=== PATIENT | male | born 1955 | race Caucasian/White ===

== ENCOUNTER 2017-09-14 16:40 | Inpatient (IN) | payer MEDICARE, MEDICAID ==
[2017-09-14] MEDS ORDERED: Aspirin Low Dose CHEW TAB* 81 MG PO ONE (17:13)
[2017-09-14 17:29] LABS: ABS Basophils 0.2 10^3/ul (0-0.2); ABS Eosinophils 0.3 10^3/ul (0-0.6); ABS Lymphocytes 3.1 10^3/ul (1.0-4.8); ABS Monocytes 0.8 10^3/ul (0-0.8); ABS Neutrophils 6.5 10^3/ul (1.5-7.7); ABS Nucleated RBC 0 10^3/ul; Eosinophil % 2.8 % (0-6); Hematocrit 47 % (42-52); Hemoglobin 16.3 g/dl (14.0-18.0); Lymphocyte % 28.8 % (25-47); Mean Corpuscular HGB Conc 34 g/dl (31-36); Mean Corpuscular Hemoglobin 29 pg (27-31); Mean Corpuscular Volume 84 fL (80-94); Mean Platelet Volume 7 um3 (7.4-10.4); Nucleated Red Blood Cells % 0; Platelet Count 306 10^3/ul (150-450); Red Blood Count 5.65 10^6/ul (4.0-5.4); Red Cell Distribution Width 13 % (10.5-15); White Blood Count 10.9 10^3/ul (3.5-10.8)
--- NOTE | 2017-09-14 17:36 | RAD ---
Indication: LEFT chest pain and heaviness with radiation to the LEFT neck and upper LEFT arm. Dizziness and intermittent shortness of breath. History of COPD. Comparison: August 09, 2015 Technique: Upright AP 1720 hours Report: Elevated lung volumes. No focal pulmonary lesion, compelling alveolar consolidation, pleural effusion, pneumothorax. The heart, pulmonary vasculature, and mediastinal contours are unremarkable. IMPRESSION: 1. Elevated lung volumes corresponding with history of COPD. 2. No acute cardiopulmonary process evident.
[2017-09-14 17:42] LABS: INR 0.88 (0.77-1.02)
[2017-09-14 17:47] LABS: EGFR Non-African American 91.9 (>60)
[2017-09-14] MEDS ORDERED: Dextrose 50% Syringe 50 ML* 25 GM/50 ML SYRINGE IV PUSH PRN (18:35)
[2017-09-14] MEDS ORDERED: Morphine INJ* 2 MG/ML 1 ML CARPUJECT IV PRN (18:47)
[2017-09-14] MEDS ORDERED: Albuterol/Ipratropium NEB.SOL* Albuterol 2.5 MG/Ipratropium 0.5 MG 3 ML INH PRN (18:51)
[2017-09-14] MEDS ORDERED: hydrALAZINE IV* 20 MG/ML VIAL IV SLOW PU PRN (18:52)
[2017-09-14] MEDS ORDERED: Iodixanol* (CONTRAST) 320 MG/ML 100 ML SDV IV ONE (18:58)
[2017-09-14] MEDS ORDERED: Acetaminophen TAB* 325 MG PO PRN (19:11)
[2017-09-14] MEDS ORDERED: Polyethylene Glycol 3350* 17 GM PACKET PO PRN (19:12)
[2017-09-14] MEDS ORDERED: Ondansetron INJ* 2 MG/ML VIAL IV PRN (19:16)
--- NOTE | 2017-09-14 19:39 | RAD ---
INDICATION: Chest pain radiating to the neck and LEFT arm. Shortness of breath. Tachycardia. COMPARISON: Chest radiograph of the same date. TECHNIQUE: Multidetector CT images were obtained from the lung apices to the upper abdomen with 79 mL Visipaque 320 IV contrast. Pulmonary angiogram protocol. Multiplanar reformation including with maximum intensity projection. REPORT: Minimal linear subsegmental atelectasis at the anteromedial basal segment of the LEFT lower lobe. No alveolar consolidation concerning for pneumonia or suspicious focal pulmonary lesion. Mucus plugging at the LEFT lower lobe lobar through segmental airways. Negative for pleural effusion or pneumothorax. Negative for cardiomegaly. Small pericardial effusion. Normal diameter thoracic aorta. Negative for aortic dissection. No filling defects are identified from the main to the subsegmental pulmonary arteries to indicate presence of a pulmonary embolism. Images through the upper abdomen are remarkable for a 1.4 cm subcapsular cyst at the RIGHT posterior hepatic segment and mild prominence of the limbs of the bilateral adrenal glands most consistent with hyperplasia. Negative for suspicious thoracic osseous lesions. IMPRESSION: 1. No evidence for pulmonary embolism. 2. Mucus plugging at the LEFT lower lobe with minimal associated subsegmental atelectasis 3. Small pericardial effusion.
[2017-09-14] MEDS: Mometasone/Formoter 200/5 MDI INH SCH (20:04)
[2017-09-14] MEDS: Insulin LISPRO* 1 UNITS UNIT SUBCUT SCH (20:41)
[2017-09-14] MEDS: Gabapentin CAP(*) 300 MG PO SCH (20:42)
[2017-09-14] MEDS: guaiFENesin ER TAB 600 MG PO SCH (21:19)
[2017-09-14] MEDS: Nicotine PATCH 14 MG/24 HR* PATCH TRANSDERM SCH (21:20)
[2017-09-14] MEDS: levETIRAcetam TAB* 500 MG PO SCH (21:22)
[2017-09-14] MEDS: Atorvastatin* 10 MG TAB PO SCH (21:23)
--- NOTE | 2017-09-14 22:56 | HP ---
AMENDED REPORT NOW INCLUDES COSIGNER DESIGNATION - ESIGNED BEFORE ADJUSTMENT CC: Guero Rutherford * HISTORY AND PHYSICAL: DATE OF ADMISSION: 09/14/17 ATTENDING FOR THIS ADMISSION: Paco Copeland MD * (DICTATED BY NOLBERTO JAQUEZ NP) PRIMARY CARE PROVIDER: Guero Rutherford. CHIEF COMPLAINT: Chest pain and shortness of breath. HISTORY OF PRESENT ILLNESS: This is a very pleasant 62-year-old male patient who reported laying on his cough earlier today taking nap and then suddenly was woken by feeling of chest heaviness and pressure. The patient subsequently sat up, took a few deep breaths and tried to wait for the pain to subside. As he was waiting, a few minutes later, the pain then became sharp, midsternal in nature and then radiating up into the left shoulder. The patient states he had some accompanying nausea with the feeling, but did not break the sweat and then felt palpitations after that. The patient subsequently called 911 and then came to the emergency department for evaluation. PAST MEDICAL HISTORY: Significant for psychiatric hospitalization 2 years ago, diagnoses: Delusions and schizophrenia with paranoia. Also, the patient self- reports history of coronary artery disease, diabetic neuropathy, diabetes mellitus, likely COPD, hypertension. At some point, he reported he was told there was a mass in one of his lungs. MEDICATIONS AT HOME: The patient states he was prescribed a diabetic medication , which he is not taking. He cannot remember which one it is; however, he does also take: 1. Gabapentin 300 mg 3 times a day. 2. Albuterol inhaler 2 puffs every 4 hours as needed. 3. Advair Diskus 250/50 one puff 2 times a day. 4. Abilify IM, monthly ALLERGIES: No known drug allergies. FAMILY HISTORY: Father with coronary artery disease and secondary to MN at age 58. Mother with diabetes mellitus, also . SOCIAL HISTORY: The patient does smoke. Currently he smokes 7 cigarettes a day ; however, he used to smoke a lot more and started at age approximately 15. Denies alcohol or drug use. The patient states he is retired. 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 REVIEW OF SYSTEMS: The patient reports currently chest pain at 2/10. Denies any fever, fatigue, or chills. Currently, no palpitations, no nausea, no vomiting. No urinary complaints. No shortness of breath at present. No myalgias or arthralgias and no further constitutional complaints. PHYSICAL EXAMINATION GENERAL: The patient is awake and alert, well nourished, well appearing. VITAL SIGNS: Currently, blood pressure 126/97, heart rate variable between 107 and 110, respiratory rate 20, O2 saturation 97% on room air, temperature is 98.1. HEENT: The patient is atraumatic, normocephalic. PERRLA with nonicteric sclera. NECK: Supple. Nontender. No JVD noted. No carotid bruit auscultated. No thyromegaly noted. LUNGS: Greatly diminished throughout the lung chamberlain. He has bilateral inspiratory and expiratory wheeze. No rales appreciated. No rhonchi noted. CARDIOVASCULAR: S1, S2 were present. No murmurs, gallops or rubs noted. He is in regular sinus rhythm on telemetry. ABDOMEN: Soft. Nontender. Nondistended. Positive bowel sounds in all 4 quadrants. GENITOURINARY: Deferred. MUSCULOSKELETAL: There is no clubbing and no cyanosis. He has trace edema to the right lower extremity primarily on the anterior das and the dorsal aspect of the right foot. He has +2 distal pulses palpable. Gross motor and sensation are intact. He is ambulatory. NEUROLOGIC: He is grossly intact with no focal deficits. PSYCHIATRIC: He is cooperative and appropriate. LABORATORY DATA: WBC 10.9, RBC 5.65, hemoglobin 16.3, hematocrit 47, platelets are 306. Sodium 132, potassium 4.3, chloride 99, BUN 13, creatinine 0.85, GFR is 91.9, glucose 334, lactic acid 1.9, calcium 9.4, magnesium 2.0, bilirubin 0.7, AST 10, ALT 9, alk phos 62, creatine kinase 66. CK-MB is 3.5. Troponin, first troponin is negative at 0.00, BNP is 14, protein 6.9, albumin of 4.1, globulin 2.8, TSH is 1.48. INR is 0.88. IMAGING: Chest x-ray did today show some hyperinflation, but no acute consolidation. EKG showed sinus tachycardia with no acute ST segment changes. IMPRESSION: This is a 62-year-old male patient with a history significant for diabetes mellitus and self-reported history of coronary artery disease and hypertension who is coming to the ER for evaluation of chest pressure and pain. The patient has been admitted to Dr. Copeland's service. DIAGNOSES: 1. Chest pain, rule out acute coronary syndrome. 2. Diabetes mellitus, uncontrolled. 3. Chronic obstructive pulmonary disease. 4. History of schizophrenia and psychosis, not in acute exacerbation. PLAN: The patient has been admitted. For now, being that patient was describing history of cardiac catheterization at [facility], he said some time between 4 and 6 years ago, he was told at that time he had 2-vessel disease, but he did not have PCI intervention. As such, we will put in patient for stress test for tomorrow, also given the palpitations that he had with this, we will send him for cardiac echo to evaluate his valves and ensure that there are no other acute findings. He will remain on telemetry. He did receive nitroglycerin by EMS on the way into the emergency department; however, it dropped his blood pressure pretty significantly. It went to 90 systolic and was symptomatic. We will try morphine 2 mg for now for his chest pain as needed and try to stay away from nitrates for now. He also received aspirin [address] Also with his chest pain, he had some shortness of breath. The D- dimer was done; however, the patient also reported after the chest pressure a sharp almost tearing sensation that went to the left shoulder. We will do a CT angiogram of the chest just to ensure no other acute pathology. Also, the patient had self-reported that he was told at one point he had a mass in his chest, I do not see anything on this chest x-ray; however, we will see if we can elucidate this further with a CAT scan of his chest. For his diabetes mellitus, I have ordered a hemoglobin A1c and placed him on lispro sliding scale ACHS. Consistent carbohydrate diet with no caffeine. For his hypertension, we will give him Apresoline q.6 hours as needed. Even though he is a little tachycardiac now, I would avoid beta-blockers at this point until he has his stress test tomorrow. If his heart rate continues to be elevated, we may give 1 dose Lopressor if needed, but would avoid that the morning of his stress test. For his psychosis and schizophrenia, the patient goes to [facility] monthly for an Abilify injection. He received that injection yesterday. His mood is very appropriate. He describes no anxiety or no issues today. He is feeling pretty good, so I do not think he will need p.r.n. medications at this point. For his COPD, he was counseled on smoking cessation. I have put him on Dulera, also keep him on his albuterol every 4 hours, DuoNeb every 6 hours. He does not appear to be in acute exacerbation. I do not feel at this point, he needs antibiotics and does not appear to have any consolidation on his chest x-ray. His sodium is mildly low and he has a bit of leukocytosis. I suspect leukocytosis is reactive from his Abilify injection yesterday. He will be n.p.o. after midnight in anticipation of his stress test. If for any reason there are positive findings on any of the exams that we are doing, we will reevaluate for inpatient status and consider Cardiology consult. In the meantime, we will carefully monitor the patient and also recheck his laboratories in the morning to ensure there are no additional changes. For DVT prophylaxis, he is ambulatory. I think we would be okay with SCDs for now as opposed to going to heparin or Lovenox injection. If this needs to change tomorrow, that can be adjusted. He is a Full Code. The rest of the patient's course will be determined by further diagnostics, laboratories and any other input from other providers as warranted during this admission. Incidentally, the patient does not have a healthcare proxy that I am aware of. This should be discussed further with him in case there are any serious findings during his stay. NOLBERTO JAQUEZ, GUILLERMO [id number]/CPS #: [id number] RAMAKRISHNA
--- NOTE | 2017-09-15 04:16 | ED ---
Annamarie Johnson Jason, scribed for Afshan Delgado MD on 09/14/17 at 1919 . HPI Chest Pain - HPI Summary HPI Summary: This patient is a 62 year old M [facility]IB[facility] to [facility] with a chief complaint of chest pain since 1529 today. The patient reports he was lying on the couch when he experienced left chest pain and heaviness with radiation to the left neck and upper left armm, with dizziness and shortness of breath. Pt states he had a cardiac catheterization done in [facility], and was found to have two vessel "small disease" that was treated medically, 4 years ago. Enroute by EMS the patient was administered 1 dose of nitroglycerin, which dropped his blood pressure to 90/40. He was also given ASA 324mg by EMS. He has been previously seen at [facility] for acute psychosis, and he is subsequently maintained on abilify IM monthly, which he states he is compliant, and last dose was a week ago. The patient rates the chest pain 5/10 in severity. Symptoms aggravated by nothing. Chest pain was partially relieved by nitroglycerin. Pt reports that he is diabetic, and was prescribed medication, but he does not take it, because he does not believe in it. Pt states he was also told he had a mass in his lung but he does not want treatment for this. Cardiac risk fxs: self report CAD per cath done in [place], no records of this at [facility]; +smoker, HTN, hyperlipidemia, DM, fam hx. - History of Current Complaint Chief Complaint: EDChestPainROMI Time Seen by Provider: 09/14/17 16:50 Hx Obtained From: Patient Onset/Duration: Started Hours Ago - since 1529, Still Present Time of Onset: 15:30 Timing: Constant Initial Severity: Severe Current Severity: Moderate Pain Intensity: 5 Pain Scale Used: 0-10 Numeric Chest Pain Location: Mid Sternal Chest Pain Radiates: Yes Chest Pain Radiates To:: Arm, Neck Character: Dyspnea at Rest, Heaviness, Pressure/Squeezing, Tightness Aggravating Factor(s): Nothing Alleviating Factor(s): Medication - Nitroglycerin x 1 by EMS Associated Signs and Symptoms: Positive: Chest Pain, Dizziness, Shortness of Breath, Other: - SOB and CP radiating to left neck and left arm. - Additional Pertinent History Primary Care Physician: Dr. Salamanca - Allergy/Home Medications Allergies/Adverse Reactions: Allergies Allergy/AdvReac Type Severity Reaction Status Date / Time No Known Allergies Allergy Verified 03/10/15 10:44 Home Medications: Home Medications Albuterol HFA INHALER* [Ventolin HFA Inhaler*] 2 puff INH Q4H PRN 09/14/17 [ History Confirmed 09/14/17] Fluticasone-Salmeterol 250-50* [Advair Diskus 250-50*] 1 puff INH BID 09/14/17 [ History Confirmed 09/14/17] Gabapentin CAP(*) [Neurontin 300 CAP(*)] 300 mg PO TID 09/14/17 [History Confirmed 09/14/17] Simvastatin 20 mg PO DAILY 09/14/17 [History Confirmed 09/14/17] levETIRAcetam [Levetiracetam] 500 mg PO BID 09/14/17 [History Confirmed 09/14/17 ] PMH/Surg Hx/FS Hx/Imm Hx Previously Healthy: No Endocrine/Hematology History: Reports: Hx Diabetes Cardiovascular History: Reports: Hx Coronary Artery Disease, Hx Hypercholesterolemia, Hx Hypertension Respiratory History: Reports: Hx Asthma, Hx Chronic Obstructive Pulmonary Disease (COPD), Hx Lung Cancer - per patient, stated he did not want treatment Psychiatric History: Reports: Hx Community Mental Health Tx, Hx Schizophrenia Denies: Hx Eating Disorder, Hx of Violent Episodes Against Others - Cancer History Cancer Type, Location and Year: Pt states he has lung cancer but is not seeking treatment for it. No [facility] records confirm diagnosis of lung cancer - Immunization History Immunizations Up to Date: Yes Infectious Disease History: No Infectious Disease History: Denies: Traveled Outside the [place] in Last 30 Days - Family History Known Family History: Positive: Cardiac Disease - in father, Diabetes - in mother - Social History Alcohol Use: Occasionally Substance Use Type: Reports: None Smoking Status (MU): Current Every Day Smoker Type: Cigarettes Review of Systems Constitutional: Negative Positive: Chest Pain - with radiation to left neck and left arm Positive: Shortness Of Breath - intermittent Gastrointestinal: Negative Neurological: Negative Psychological: Normal All Other Systems Reviewed And Are Negative: Yes Physical Exam - Summary Physical Exam Summary: Appearance: Ill-appearing, moderate pain distress, Well-nourished Skin: Warm, color reflects adequate perfusion Head: Normal Head/Face inspection Eyes: Conjunctiva clear ENT: Normal inspection Neck: Supple, no nodes, no JVD. Respiratory: Expiratory Wheezes throughout, no respiratory distress Cardio: RRR, No murmur, pulses normal, brisk capillary refill Abdomen: soft, nontender Bowel sounds: present Musculoskeletal: Strength Intact/ ROM intact. No calf tenderness. No edema. Neuro: alert O x 3, No focal deficit. facial symmetry, speech clear Psychological: Normal Triage Information Reviewed: Yes Vital Signs On Initial Exam: Initial Vitals Pulse Resp Pulse Ox 110 17 96 09/14/17 16:47 09/14/17 16:47 09/14/17 16:47 Vital Signs Reviewed: Yes Diagnostics - Vital Signs Vital Signs Temp Pulse Resp BP Pulse Ox 09/14/17 18:30 108 20 159/104 97 09/14/17 18:00 108 20 126/97 97 09/14/17 17:30 110 25 141/95 97 09/14/17 17:04 136/91 09/14/17 17:00 98.1 F 109 14 136/91 96 09/14/17 16:47 110 17 96 - Laboratory Lab Results: Lab Results 09/14/17 09/14/17 09/14/17 Range/Units 17:20 17:20 17:20 WBC 10.9 H (3.5-10.8) 10^3/ul RBC 5.65 H (4.0-5.4) 10^6/ul Hgb 16.3 (14.0-18.0) g/dl Hct 47 (42-52) % MCV 84 (80-94) fL MCH 29 (27-31) pg MCHC 34 (31-36) g/dl RDW 13 (10.5-15) % Plt Count 306 (150-450) 10^3/ul MPV 7 L (7.4-10.4) um3 Neut % (Auto) 59.7 (38-83) % Lymph % (Auto) 28.8 (25-47) % Phillips % (Auto) 7.2 H (0-7) % Eos % (Auto) 2.8 (0-6) % Baso % (Auto) 1.5 (0-2) % Absolute Neuts (auto) 6.5 (1.5-7.7) 10^3/ul Absolute Lymphs (auto) 3.1 (1.0-4.8) 10^3/ul Absolute Monos (auto) 0.8 (0-0.8) 10^3/ul Absolute Eos (auto) 0.3 (0-0.6) 10^3/ul Absolute Basos (auto) 0.2 (0-0.2) 10^3/ul Absolute Nucleated RBC 0 10^3/ul Nucleated RBC % 0 INR (Anticoag Therapy) 0.88 (0.77-1.02) APTT 28.5 (26.0-36.3) seconds D-Dimer, Quantitative < 200 (Less Than 230) ng/mL Sodium (133-145) mmol/L Potassium (3.5-5.0) mmol/L Chloride (101-111) mmol/L Carbon Dioxide (22-32) mmol/L Anion Gap (2-11) mmol/L BUN (6-24) mg/dL Creatinine (0.67-1.17) mg/dL Est GFR ( Amer) (>60) Est GFR (Non-Af Amer) (>60) BUN/Creatinine Ratio (8-20) Glucose (70-100) mg/dL Lactic Acid (0.5-2.0) mmol/L Calcium (8.6-10.3) mg/dL Magnesium (1.9-2.7) mg/dL Total Bilirubin (0.2-1.0) mg/dL AST (13-39) U/L ALT (7-52) U/L Alkaline Phosphatase (34-104) U/L Total Creatine Kinase (10-223) U/L CK-MB (CK-2) (0.6-6.3) ng/mL Troponin I (<0.04) ng/mL B-Natriuretic Peptide 14 ( - 100) pg/mL Total Protein (6.4-8.9) g/dL Albumin (3.2-5.2) g/dL Globulin (2-4) g/dL Albumin/Globulin Ratio (1-3) TSH (0.34-5.60) mcIU/mL 09/14/17 09/14/17 Range/Units 17:20 17:20 WBC (3.5-10.8) 10^3/ul RBC (4.0-5.4) 10^6/ul Hgb (14.0-18.0) g/dl Hct (42-52) % MCV (80-94) fL MCH (27-31) pg MCHC (31-36) g/dl RDW (10.5-15) % Plt Count (150-450) 10^3/ul MPV (7.4-10.4) um3 Neut % (Auto) (38-83) % Lymph % (Auto) (25-47) % Phillips % (Auto) (0-7) % Eos % (Auto) (0-6) % Baso % (Auto) (0-2) % Absolute Neuts (auto) (1.5-7.7) 10^3/ul Absolute Lymphs (auto) (1.0-4.8) 10^3/ul Absolute Monos (auto) (0-0.8) 10^3/ul Absolute Eos (auto) (0-0.6) 10^3/ul Absolute Basos (auto) (0-0.2) 10^3/ul Absolute Nucleated RBC 10^3/ul Nucleated RBC % INR (Anticoag Therapy) (0.77-1.02) APTT (26.0-36.3) seconds D-Dimer, Quantitative (Less Than 230) ng/mL Sodium 132 L (133-145) mmol/L Potassium 4.3 (3.5-5.0) mmol/L Chloride 99 L (101-111) mmol/L Carbon Dioxide 25 (22-32) mmol/L Anion Gap 8 (2-11) mmol/L BUN 13 (6-24) mg/dL Creatinine 0.85 (0.67-1.17) mg/dL Est GFR ( Amer) 118.2 (>60) Est GFR (Non-Af Amer) 91.9 (>60) BUN/Creatinine Ratio 15.3 (8-20) Glucose 334 H (70-100) mg/dL Lactic Acid 1.9 (0.5-2.0) mmol/L Calcium 9.4 (8.6-10.3) mg/dL Magnesium 2.0 (1.9-2.7) mg/dL Total Bilirubin 0.70 (0.2-1.0) mg/dL AST 10 L (13-39) U/L ALT 9 (7-52) U/L Alkaline Phosphatase 62 (34-104) U/L Total Creatine Kinase 66 (10-223) U/L CK-MB (CK-2) 3.5 (0.6-6.3) ng/mL Troponin I 0.00 (<0.04) ng/mL B-Natriuretic Peptide ( - 100) pg/mL Total Protein 6.9 (6.4-8.9) g/dL Albumin 4.1 (3.2-5.2) g/dL Globulin 2.8 (2-4) g/dL Albumin/Globulin Ratio 1.5 (1-3) TSH 1.48 (0.34-5.60) mcIU/mL Result Diagrams: 09/15/17 13:31 09/15/17 13:31 Lab Statement: Any lab studies that have been ordered have been reviewed, and results considered in the medical decision making process. - Radiology CXR Radiology Interpretation Completed By: Radiologist - CXR reveals, per radiologist, 1. Elevated lung volumes corresponding with history of COPD. 2. No acute cardiopulmonary process evident. ED physician has reviewed this radiology report. - CT Chest/Thorax CT Interpretation Completed By: Radiologist - A Chest/Thorax CTA reveals, per radiologist, 1. No evidence for pulmonary embolism. 2. Mucus plugging at the LEFT lower lobe with minimal associated subsegmental atelectasis 3. Small pericardial effusion. ED physician has reviewed this radiology report. ED physician has reviewed this radiology report. - EKG 1643 Cardiac Rate: Tachycardia EKG Rhythm: Sinus Tachycardia - [address] Segment: Non-Specific Ectopy: None EKG Interpretation: nml AVIVCT, nml QTc, and nml axis. Re-Evaluation - Re-Evaluation First Eval Re-Evaluation Time: 18:03 Change: Improved Comment: Pt condition is improved, pain is now at a 3/10, spontaneously improved. Chest Pain Course/Dx - Course Course Of Treatment: Aspirin was given by EMS, so not given in ED. At 17:[address]. Copeland who recommended admission. Additionally, Dr. Copeland noticed the patient has no record of cardiac catheterization at [facility]. Pt stated upon further questioning that this was done in [facility]. Assessment/Plan: Discussed results with patient. Patient will be admitted. Patient is agreeable with this plan. - Chest Pain Differential Diagnosis/HQI/PQRI: Acute OK, ACS, Angina, Chest Wall, GI Disease, Lower Respiratory Infection, Pulmonary Embolism - Diagnoses Provider Diagnoses: Chest pain, Poorly controlled diabetes mellitus - Provider Notifications Discussed Care Of Patient With: Celestino Copeland Time Discussed With Above Provider: 17:54 - admit Instructed by Provider To: Admit As Observation Discharge - Discharge Plan Condition: Stable Disposition: ADMITTED TO [facility] documentation as recorded by the Annamarie longoria Jason accurately reflects the service I personally performed and the decisions made by Danny tamayo Barbara J, MD.
[2017-09-15 06:07] LABS: ABS Basophils 0.1 10^3/ul (0-0.2); ABS Eosinophils 0.4 10^3/ul (0-0.6); ABS Monocytes 0.7 10^3/ul (0-0.8); ABS Neutrophils 4.8 10^3/ul (1.5-7.7); ABS Nucleated RBC 0 10^3/ul; Eosinophil % 4.2 % (0-6); Hematocrit 47 % (42-52); Hemoglobin 15.6 g/dl (14.0-18.0); Lymphocyte % 33.7 % (25-47); Mean Corpuscular HGB Conc 34 g/dl (31-36); Mean Corpuscular Hemoglobin 28 pg (27-31); Mean Corpuscular Volume 84 fL (80-94); Mean Platelet Volume 7 um3 (7.4-10.4); Nucleated Red Blood Cells % 0.1; Platelet Count 258 10^3/ul (150-450); Red Blood Count 5.54 10^6/ul (4.0-5.4); Red Cell Distribution Width 13 % (10.5-15)
[2017-09-15 06:23] LABS: EGFR Non-African American 94.5 (>60)
[2017-09-15 07:00] LABS: Urine Appearance Clear; Urine Blood Negative (Negative); Urine Color Yellow; Urine Ketones Negative (Negative); Urine Protein Negative (Negative); Urine Specific Gravity 1.047 (1.010-1.030); Urine Urobilinogen Negative (Negative)
[2017-09-15] MEDS: Mometasone/Formoter 200/5 MDI INH SCH ×2 (07:24→19:58)
[2017-09-15] MEDS: Nicotine PATCH 14 MG/24 HR* PATCH TRANSDERM SCH (08:34)
[2017-09-15] MEDS: Insulin LISPRO* 1 UNITS UNIT SUBCUT SCH ×4 (08:34→21:46)
[2017-09-15] MEDS: guaiFENesin ER TAB 600 MG PO SCH ×2 (08:35→21:40)
[2017-09-15] MEDS: levETIRAcetam TAB* 500 MG PO SCH ×2 (08:35→21:40)
[2017-09-15] MEDS: Nicotine Patch Removal NOTE PATCH OFF SCH (08:35)
[2017-09-15] MEDS: Gabapentin CAP(*) 300 MG PO SCH ×3 (08:35→21:39)
[2017-09-15] MEDS: Insulin GLARGINE(*) 1 UNITS UNIT SUBCUT SCH (12:02)
[2017-09-15] MEDS: Metoprolol Tartrate TAB* 25 MG PO SCH ×2 (12:03→21:43)
--- NOTE | 2017-09-15 12:16 | PN ---
Subjective Date of Service: 09/15/17 Interval History: Pt is a rather poor historian, Las CP similar to the one yesterday happened 4 yrs ago and at that point stress test was neg. Denies having CAD or cath in the past. Had been CP free since admission Smokes 7 cig/day, denies ETOH. No SOB but c/o wheezing Objective Active Medications: Acetaminophen (Tylenol Tab*) 650 mg PO Q6H PRN PRN Reason: FEVER/HEADACHE Last Admin: 09/15/17 05:10 Dose: 650 mg Albuterol (Ventolin Hfa Inhaler*) 2 puff INH Q4H PRN PRN Reason: SOB/WHEEZING Albuterol/Ipratropium (Duoneb (Albuterol 2.5 Mg/Ipratropium 0.5 Mg)) 1 neb INH Q6H PRN PRN Reason: SOB/WHEEZING Atorvastatin Calcium (Lipitor*) 10 mg PO BEDTIME [facility] Last Admin: 09/14/17 21:23 Dose: Not Given Dextrose (D50w Syringe 50 Ml*) 12.5 gm IV PUSH .FOR FS < 60 - SS PRN PRN Reason: FS < 60 Gabapentin (Neurontin Cap(*)) 300 mg PO TID [facility] Last Admin: 09/15/17 08:35 Dose: 300 mg Guaifenesin (Mucinex*) 600 mg PO BID [facility] Last Admin: 09/15/17 08:35 Dose: 600 mg Insulin Glargine (Lantus(*)) 10 units SUBCUT Q24H [facility] Last Admin: 09/15/17 12:02 Dose: 10 units Insulin Human Lispro (Humalog*) 0 units SUBCUT ACHS [facility] PRN Reason: Protocol Last Admin: 09/15/17 12:03 Dose: 6 units Levetiracetam (Keppra Tab*) 500 mg PO BID [facility] Last Admin: 09/15/17 08:35 Dose: 500 mg Metoprolol Tartrate (Lopressor Tab*) 12.5 mg PO Q12HR [facility] Last Admin: 09/15/17 12:03 Dose: 12.5 mg Mometasone Furoate/Formoterol Fumar (Dulera 200/5 Mdi*) 2 puff INH BID [facility] Last Admin: 09/15/17 07:24 Dose: 2 puff Morphine Sulfate (Morphine Inj (Syringe)*) 2 mg IV Q4H PRN PRN Reason: PAIN - CHEST Nicotine (Nicotine Patch 14 Mg/24 Hr*) 1 patch TRANSDERM DAILY [facility] Last Admin: 09/15/17 08:34 Dose: 1 patch Ondansetron HCl (Zofran Inj*) 4 mg IV Q8H PRN PRN Reason: NAUSEA Pharmacy Profile Note (Nicotine Patch Removal Note*) 1 note PATCH OFF 0800 [facility] Last Admin: 09/15/17 08:35 Dose: 1 note Polyethylene Glycol/Electrolytes (Miralax*) 17 gm PO DAILY PRN PRN Reason: CONSTIPATION Vital Signs - 8 hr 09/15/17 09/15/17 09/15/17 07:10 07:30 08:35 Temperature 98.0 F Pulse Rate 95 Respiratory 20 20 16 Rate Blood Pressure 130/75 (mmHg) O2 Sat by Pulse 94 Oximetry 09/15/17 09/15/17 10:24 11:12 Temperature 98.1 F Pulse Rate 100 Respiratory 18 16 Rate Blood Pressure 128/93 (mmHg) O2 Sat by Pulse 97 Oximetry Oxygen Devices in Use Now: None Appearance: 62 yo F in NAD, AAOx3 Eyes: No Scleral Icterus, PERRLA Ears/Nose/Mouth/Throat: NL Teeth, Lips, Gums Neck: NL Appearance and Movements; NL JVP, Trachea Midline Respiratory: Symmetrical Chest Expansion and Respiratory Effort, - - wheezing b/ l upper lungs clears mostly after cough Cardiovascular: NL Sounds; No Murmurs; No JVD, RRR Abdominal: NL Sounds; No Tenderness; No Distention, No Hepatosplenomegaly Lymphatic: No Cervical Adenopathy Extremities: No Edema, No Clubbing, Cyanosis Skin: No Rash or Ulcers, No Nodules or Sclerosis Neurological: Alert and Oriented x 3, NL Muscle Strength and Tone Result Diagrams: 09/15/17 05:54 09/15/17 05:54 Additional Lab and Data: Lab Results 09/14/17 09/14/17 09/14/17 Range/Units 17:20 17:20 17:20 WBC 10.9 H (3.5-10.8) 10^3/ul RBC 5.65 H (4.0-5.4) 10^6/ul Hgb 16.3 (14.0-18.0) g/dl Hct 47 (42-52) % MCV 84 (80-94) fL MCH 29 (27-31) pg MCHC 34 (31-36) g/dl RDW 13 (10.5-15) % Plt Count 306 (150-450) 10^3/ul MPV 7 L (7.4-10.4) um3 Neut % (Auto) 59.7 (38-83) % Lymph % (Auto) 28.8 (25-47) % [place] % (Auto) 7.2 H (0-7) % Eos % (Auto) 2.8 (0-6) % Baso % (Auto) 1.5 (0-2) % Absolute Neuts (auto) 6.5 (1.5-7.7) 10^3/ul Absolute Lymphs (auto) 3.1 (1.0-4.8) 10^3/ul Absolute Monos (auto) 0.8 (0-0.8) 10^3/ul Absolute Eos (auto) 0.3 (0-0.6) 10^3/ul Absolute Basos (auto) 0.2 (0-0.2) 10^3/ul Absolute Nucleated RBC 0 10^3/ul Nucleated RBC % 0 INR (Anticoag Therapy) 0.88 (0.77-1.02) APTT 28.5 (26.0-36.3) seconds D-Dimer, Quantitative < 200 (Less Than 230) ng/mL Sodium (133-145) mmol/L Potassium (3.5-5.0) mmol/L Chloride (101-111) mmol/L Carbon Dioxide (22-32) mmol/L Anion Gap (2-11) mmol/L BUN (6-24) mg/dL Creatinine (0.67-1.17) mg/dL Est GFR ( Amer) (>60) Est GFR (Non-Af Amer) (>60) BUN/Creatinine Ratio (8-20) Glucose (70-100) mg/dL Lactic Acid (0.5-2.0) mmol/L Calcium (8.6-10.3) mg/dL Magnesium (1.9-2.7) mg/dL Total Bilirubin (0.2-1.0) mg/dL AST (13-39) U/L ALT (7-52) U/L Alkaline Phosphatase (34-104) U/L Total Creatine Kinase (10-223) U/L CK-MB (CK-2) (0.6-6.3) ng/mL Troponin I (<0.04) ng/mL B-Natriuretic Peptide 14 ( - 100) pg/mL Total Protein (6.4-8.9) g/dL Albumin (3.2-5.2) g/dL Globulin (2-4) g/dL Albumin/Globulin Ratio (1-3) TSH (0.34-5.60) mcIU/mL 09/14/17 09/14/17 Range/Units 17:20 17:20 WBC (3.5-10.8) 10^3/ul RBC (4.0-5.4) 10^6/ul Hgb (14.0-18.0) g/dl Hct (42-52) % MCV (80-94) fL MCH (27-31) pg MCHC (31-36) g/dl RDW (10.5-15) % Plt Count (150-450) 10^3/ul MPV (7.4-10.4) um3 Neut % (Auto) (38-83) % Lymph % (Auto) (25-47) % [place] % (Auto) (0-7) % Eos % (Auto) (0-6) % Baso % (Auto) (0-2) % Absolute Neuts (auto) (1.5-7.7) 10^3/ul Absolute Lymphs (auto) (1.0-4.8) 10^3/ul Absolute Monos (auto) (0-0.8) 10^3/ul Absolute Eos (auto) (0-0.6) 10^3/ul Absolute Basos (auto) (0-0.2) 10^3/ul Absolute Nucleated RBC 10^3/ul Nucleated RBC % INR (Anticoag Therapy) (0.77-1.02) APTT (26.0-36.3) seconds D-Dimer, Quantitative (Less Than 230) ng/mL Sodium 132 L (133-145) mmol/L Potassium 4.3 (3.5-5.0) mmol/L Chloride 99 L (101-111) mmol/L Carbon Dioxide 25 (22-32) mmol/L Anion Gap 8 (2-11) mmol/L BUN 13 (6-24) mg/dL Creatinine 0.85 (0.67-1.17) mg/dL Est GFR ( Amer) 118.2 (>60) Est GFR (Non-Af Amer) 91.9 (>60) BUN/Creatinine Ratio 15.3 (8-20) Glucose 334 H (70-100) mg/dL Lactic Acid 1.9 (0.5-2.0) mmol/L Calcium 9.4 (8.6-10.3) mg/dL Magnesium 2.0 (1.9-2.7) mg/dL Total Bilirubin 0.70 (0.2-1.0) mg/dL AST 10 L (13-39) U/L ALT 9 (7-52) U/L Alkaline Phosphatase 62 (34-104) U/L Total Creatine Kinase 66 (10-223) U/L CK-MB (CK-2) 3.5 (0.6-6.3) ng/mL Troponin I 0.00 (<0.04) ng/mL B-Natriuretic Peptide ( - 100) pg/mL Total Protein 6.9 (6.4-8.9) g/dL Albumin 4.1 (3.2-5.2) g/dL Globulin 2.8 (2-4) g/dL Albumin/Globulin Ratio 1.5 (1-3) TSH 1.48 (0.34-5.60) mcIU/mL Assess/Plan/Problems-Billing Assessment: 62 yo M with h/o HTN, DM2, schizophrenia, COPD presents with c/o CP - Patient Problems (1) Chest pain Comment: pt needs to await a cardiac stress test on Sunday, cont telem tx with ASA, lipitor started at admission trops neg (2) HTN (hypertension) Comment: labile BP with tachycardia, will start lopressor (3) History of COPD Comment: cont Dulera. CTA shows mucous plugging. No evidence of acute infection , encouraged to cough (4) DM2 (diabetes mellitus, type 2) Comment: HbA1C at 11.4 with med noncompliance. Will cont ISS, started Lantus, can be placed on oral agent at d/c (5) Hyperlipemia Comment: LDL 65, cont lipitor (6) Schizophrenia Comment: receives injectable Abilify as outpatient (7) Seizure Comment: vague h/o seizure disorder, cont Keppra for now. (8) DVT prophylaxis Comment: HSQ Status and Disposition: OBV placed to inpatient due to the need of stress test on Sunday
[2017-09-15 13:40] LABS: ABS Basophils 0.1 10^3/ul (0-0.2); ABS Eosinophils 0.4 10^3/ul (0-0.6); ABS Lymphocytes 2.5 10^3/ul (1.0-4.8); ABS Monocytes 0.4 10^3/ul (0-0.8); ABS Neutrophils 5.1 10^3/ul (1.5-7.7); ABS Nucleated RBC 0 10^3/ul; Eosinophil % 4.3 % (0-6); Hematocrit 45 % (42-52); Hemoglobin 15.3 g/dl (14.0-18.0); Lymphocyte % 29.2 % (25-47); Mean Corpuscular HGB Conc 34 g/dl (31-36); Mean Corpuscular Hemoglobin 28 pg (27-31); Mean Corpuscular Volume 83 fL (80-94); Mean Platelet Volume 7 um3 (7.4-10.4); Nucleated Red Blood Cells % 0; Platelet Count 271 10^3/ul (150-450); Red Blood Count 5.42 10^6/ul (4.0-5.4); Red Cell Distribution Width 13 % (10.5-15); White Blood Count 8.4 10^3/ul (3.5-10.8)
[2017-09-15] MEDS: Heparin VIAL(*) 5000 UNITS/ML VIAL (FIVE THOUSAND) SUBCUT SCH ×2 (13:50→21:47)
[2017-09-15 14:09] LABS: INR 0.98 (0.77-1.02)
[2017-09-15 14:11] LABS: EGFR Non-African American 87.2 (>60)
[2017-09-15] MEDS: Albuterol HFA INHALER* 8 gm MDI INH PRN (20:06)
[2017-09-15] MEDS: Atorvastatin* 10 MG TAB PO SCH (21:38)
[2017-09-16] MEDS: Heparin VIAL(*) 5000 UNITS/ML VIAL (FIVE THOUSAND) SUBCUT SCH ×3 (05:23→21:22)
[2017-09-16] MEDS: Mometasone/Formoter 200/5 MDI INH SCH ×2 (07:13→19:34)
[2017-09-16] MEDS: guaiFENesin ER TAB 600 MG PO SCH ×2 (08:14→21:21)
[2017-09-16] MEDS: Insulin LISPRO* 1 UNITS UNIT SUBCUT SCH ×4 (08:14→21:22)
[2017-09-16] MEDS: Metoprolol Tartrate TAB* 25 MG PO SCH ×2 (08:14→21:21)
[2017-09-16] MEDS: Nicotine Patch Removal NOTE PATCH OFF SCH (08:15)
[2017-09-16] MEDS: Gabapentin CAP(*) 300 MG PO SCH ×3 (08:15→21:21)
[2017-09-16] MEDS: Nicotine PATCH 14 MG/24 HR* PATCH TRANSDERM SCH (08:15)
[2017-09-16] MEDS: levETIRAcetam TAB* 500 MG PO SCH ×2 (08:15→21:21)
--- NOTE | 2017-09-16 09:24 | PN ---
Subjective Date of Service: 09/16/17 Interval History: P feels well, no CP noted.Rather poor and reserved historian Objective Active Medications: Acetaminophen (Tylenol Tab*) 650 mg PO Q6H PRN PRN Reason: FEVER/HEADACHE Last Admin: 09/15/17 05:10 Dose: 650 mg Albuterol (Ventolin Hfa Inhaler*) 2 puff INH Q4H PRN PRN Reason: SOB/WHEEZING Last Admin: 09/15/17 20:06 Dose: 2 puff Albuterol/Ipratropium (Duoneb (Albuterol 2.5 Mg/Ipratropium 0.5 Mg)) 1 neb INH Q6H PRN PRN Reason: SOB/WHEEZING Atorvastatin Calcium (Lipitor*) 10 mg PO BEDTIME [facility] Last Admin: 09/15/17 21:38 Dose: 10 mg Dextrose (D50w Syringe 50 Ml*) 12.5 gm IV PUSH .FOR FS < 60 - SS PRN PRN Reason: FS < 60 Gabapentin (Neurontin Cap(*)) 300 mg PO TID [facility] Last Admin: 09/16/17 08:15 Dose: 300 mg Guaifenesin (Mucinex*) 600 mg PO BID [facility] Last Admin: 09/16/17 08:14 Dose: 600 mg Heparin Sodium (Porcine) (Heparin Vial(*)) 5,000 units SUBCUT Q8HR [facility] Last Admin: 09/16/17 05:23 Dose: 5,000 units Insulin Glargine (Lantus(*)) 10 units SUBCUT Q24H [facility] Last Admin: 09/15/17 12:02 Dose: 10 units Insulin Human Lispro (Humalog*) 0 units SUBCUT ACHS [facility] PRN Reason: Protocol Last Admin: 09/16/17 08:14 Dose: 4 units Levetiracetam (Keppra Tab*) 500 mg PO BID [facility] Last Admin: 09/16/17 08:15 Dose: 500 mg Metoprolol Tartrate (Lopressor Tab*) 12.5 mg PO Q12HR [facility] Last Admin: 09/16/17 08:14 Dose: 12.5 mg Mometasone Furoate/Formoterol Fumar (Dulera 200/5 Mdi*) 2 puff INH BID [facility] Last Admin: 09/16/17 07:13 Dose: 2 puff Morphine Sulfate (Morphine Inj (Syringe)*) 2 mg IV Q4H PRN PRN Reason: PAIN - CHEST Nicotine (Nicotine Patch 14 Mg/24 Hr*) 1 patch TRANSDERM DAILY [facility] Last Admin: 09/16/17 08:15 Dose: 1 patch Ondansetron HCl (Zofran Inj*) 4 mg IV Q8H PRN PRN Reason: NAUSEA Pharmacy Profile Note (Nicotine Patch Removal Note*) 1 note PATCH OFF 0800 [facility] Last Admin: 09/16/17 08:15 Dose: 1 note Polyethylene Glycol/Electrolytes (Miralax*) 17 gm PO DAILY PRN PRN Reason: CONSTIPATION Vital Signs - 8 hr 09/16/17 09/16/17 09/16/17 03:03 07:09 08:15 Temperature 98.5 F 98.4 F Pulse Rate 90 85 Respiratory 20 16 18 Rate Blood Pressure 127/93 136/99 (mmHg) O2 Sat by Pulse 95 95 Oximetry Oxygen Devices in Use Now: None Appearance: 62 yo M in nAD, aAOx3 Eyes: No Scleral Icterus, PERRLA Ears/Nose/Mouth/Throat: NL Teeth, Lips, Gums, Mucous Membranes Moist Neck: NL Appearance and Movements; NL JVP, Trachea Midline Respiratory: Symmetrical Chest Expansion and Respiratory Effort, - - scant b/l wheezes noted Cardiovascular: NL Sounds; No Murmurs; No JVD, RRR Abdominal: NL Sounds; No Tenderness; No Distention, No Hepatosplenomegaly Lymphatic: No Cervical Adenopathy Extremities: No Edema, No Clubbing, Cyanosis Skin: No Rash or Ulcers, No Nodules or Sclerosis Neurological: Alert and Oriented x 3, NL Muscle Strength and Tone Result Diagrams: 09/15/17 13:31 09/15/17 13:31 Additional Lab and Data: Lab Results 09/14/17 09/14/17 09/14/17 Range/Units 17:20 17:20 17:20 WBC 10.9 H (3.5-10.8) 10^3/ul RBC 5.65 H (4.0-5.4) 10^6/ul Hgb 16.3 (14.0-18.0) g/dl Hct 47 (42-52) % MCV 84 (80-94) fL MCH 29 (27-31) pg MCHC 34 (31-36) g/dl RDW 13 (10.5-15) % Plt Count 306 (150-450) 10^3/ul MPV 7 L (7.4-10.4) um3 Neut % (Auto) 59.7 (38-83) % Lymph % (Auto) 28.8 (25-47) % [place] % (Auto) 7.2 H (0-7) % Eos % (Auto) 2.8 (0-6) % Baso % (Auto) 1.5 (0-2) % Absolute Neuts (auto) 6.5 (1.5-7.7) 10^3/ul Absolute Lymphs (auto) 3.1 (1.0-4.8) 10^3/ul Absolute Monos (auto) 0.8 (0-0.8) 10^3/ul Absolute Eos (auto) 0.3 (0-0.6) 10^3/ul Absolute Basos (auto) 0.2 (0-0.2) 10^3/ul Absolute Nucleated RBC 0 10^3/ul Nucleated RBC % 0 INR (Anticoag Therapy) 0.88 (0.77-1.02) APTT 28.5 (26.0-36.3) seconds D-Dimer, Quantitative < 200 (Less Than 230) ng/mL Sodium (133-145) mmol/L Potassium (3.5-5.0) mmol/L Chloride (101-111) mmol/L Carbon Dioxide (22-32) mmol/L Anion Gap (2-11) mmol/L BUN (6-24) mg/dL Creatinine (0.67-1.17) mg/dL Est GFR ( Amer) (>60) Est GFR (Non-Af Amer) (>60) BUN/Creatinine Ratio (8-20) Glucose (70-100) mg/dL Lactic Acid (0.5-2.0) mmol/L Calcium (8.6-10.3) mg/dL Magnesium (1.9-2.7) mg/dL Total Bilirubin (0.2-1.0) mg/dL AST (13-39) U/L ALT (7-52) U/L Alkaline Phosphatase (34-104) U/L Total Creatine Kinase (10-223) U/L CK-MB (CK-2) (0.6-6.3) ng/mL Troponin I (<0.04) ng/mL B-Natriuretic Peptide 14 ( - 100) pg/mL Total Protein (6.4-8.9) g/dL Albumin (3.2-5.2) g/dL Globulin (2-4) g/dL Albumin/Globulin Ratio (1-3) TSH (0.34-5.60) mcIU/mL 09/14/17 09/14/17 Range/Units 17:20 17:20 WBC (3.5-10.8) 10^3/ul RBC (4.0-5.4) 10^6/ul Hgb (14.0-18.0) g/dl Hct (42-52) % MCV (80-94) fL MCH (27-31) pg MCHC (31-36) g/dl RDW (10.5-15) % Plt Count (150-450) 10^3/ul MPV (7.4-10.4) um3 Neut % (Auto) (38-83) % Lymph % (Auto) (25-47) % [place] % (Auto) (0-7) % Eos % (Auto) (0-6) % Baso % (Auto) (0-2) % Absolute Neuts (auto) (1.5-7.7) 10^3/ul Absolute Lymphs (auto) (1.0-4.8) 10^3/ul Absolute Monos (auto) (0-0.8) 10^3/ul Absolute Eos (auto) (0-0.6) 10^3/ul Absolute Basos (auto) (0-0.2) 10^3/ul Absolute Nucleated RBC 10^3/ul Nucleated RBC % INR (Anticoag Therapy) (0.77-1.02) APTT (26.0-36.3) seconds D-Dimer, Quantitative (Less Than 230) ng/mL Sodium 132 L (133-145) mmol/L Potassium 4.3 (3.5-5.0) mmol/L Chloride 99 L (101-111) mmol/L Carbon Dioxide 25 (22-32) mmol/L Anion Gap 8 (2-11) mmol/L BUN 13 (6-24) mg/dL Creatinine 0.85 (0.67-1.17) mg/dL Est GFR ( Amer) 118.2 (>60) Est GFR (Non-Af Amer) 91.9 (>60) BUN/Creatinine Ratio 15.3 (8-20) Glucose 334 H (70-100) mg/dL Lactic Acid 1.9 (0.5-2.0) mmol/L Calcium 9.4 (8.6-10.3) mg/dL Magnesium 2.0 (1.9-2.7) mg/dL Total Bilirubin 0.70 (0.2-1.0) mg/dL AST 10 L (13-39) U/L ALT 9 (7-52) U/L Alkaline Phosphatase 62 (34-104) U/L Total Creatine Kinase 66 (10-223) U/L CK-MB (CK-2) 3.5 (0.6-6.3) ng/mL Troponin I 0.00 (<0.04) ng/mL B-Natriuretic Peptide ( - 100) pg/mL Total Protein 6.9 (6.4-8.9) g/dL Albumin 4.1 (3.2-5.2) g/dL Globulin 2.8 (2-4) g/dL Albumin/Globulin Ratio 1.5 (1-3) TSH 1.48 (0.34-5.60) mcIU/mL Assess/Plan/Problems-Billing Assessment: 62 yo M with h/o HTN, DM2, schizophrenia, COPD presents with c/o CP - Patient Problems (1) Chest pain Comment: pt needs to await a cardiac stress test on Sunday, cont telem tx with ASA, lipitor started at admission trops neg (2) HTN (hypertension) Comment: labile BP with tachycardia, lopressor started on 09/15/17, Echo pending (3) History of COPD Comment: cont Dulera. CTA shows mucous plugging. No evidence of acute infection , encouraged to cough (4) DM2 (diabetes mellitus, type 2) Comment: HbA1C at 11.4 with med noncompliance. Will cont ISS, started Lantus on 09/15/17. Will start glipizide today (5) Hyperlipemia Comment: LDL 65, cont lipitor (6) Schizophrenia Comment: receives injectable Abilify as outpatient (7) Seizure Comment: vague h/o seizure disorder, cont Keppra for now. (8) DVT prophylaxis Comment: HSQ Status and Disposition: OBV placed to inpatient due to the need of stress test on Sunday
[2017-09-16] MEDS: glipiZIDE TAB* 5 MG PO SCH (09:49)
--- NOTE | 2017-09-16 10:53 | ECHO ---
Patient: ARTURO MONTANO [facility] Rec#: [id number] : 1955 Date: 09/16/2017 Age: 62y Height: 167.64 cm / 66.0 in Weight: 83.91 kg / 184.9 lbs Sex: M BSA: 1.93 Room#: 443 Admit Date#: 09/15/2017 Type: Inpatient Referring: Sheyla Arguello Reading: Roberto Almeida DO Analysis Intern: Kennedi Kinsey RDCS CC: Valentino Salamanca MD Transthoracic Echocardiogram Indication: CP BP: 127/93 HR: 56 Rhythm: Bradycardia Findings History: Psyche issues,CAD,COPD,DM,HTN,smoker. Technical Comments: The study quality is good. Completed at 0944. Left Ventricle: The left ventricular chamber size is normal. Mild to moderate concentric left ventricular hypertrophy is observed. Global left ventricular wall motion and contractility are within normal limits. Left ventricular systolic function is at the lower limits of normal. The estimated ejection fraction is 50-55%. Abnormal left ventricular diastolic function is observed. Left Atrium: The left atrial chamber size is normal. Right Ventricle: The right ventricular chamber size and systolic function are within normal limits. Right Atrium: The right atrial cavity size is normal. Aortic Valve: The aortic valve is trileaflet. The aortic valve leaflets are mildly thickened. There is a trace of aortic regurgitation. There is no evidence of aortic stenosis. Mitral Valve: The mitral valve leaflets appear normal. There is no evidence of mitral regurgitation. There is no evidence of mitral stenosis. Tricuspid Valve: The tricuspid valve leaflets are normal. There is trace tricuspid regurgitation. Unable to estimate the right ventricular systolic pressure. There is no tricuspid stenosis. Pulmonic Valve: The pulmonic valve appears normal. There is a trace pulmonic regurgitation. There is no pulmonic stenosis. Pericardium: There is no significant pericardial effusion. Aorta: There is no dilatation of the ascending aorta. The aortic arch is not well visualized. There is mild dilatation of the aortic root. Pulmonary Artery: The main pulmonary artery is not well visualized. Venous: The venous system is not well visualized. Conclusions The left ventricular chamber size is normal. Mild to moderate (more consistent with mild) concentric left ventricular hypertrophy is observed. Left ventricular systolic function is at the lower limits of normal. The estimated ejection fraction is 50-55%. The left atrial chamber size is normal. The right ventricular chamber size and systolic function are within normal limits. No significant valvular abnormalities noted There is no significant pericardial effusion. There is mild dilatation of the aortic root. None prior for comparison at time of interpretation Measurements Name Value Normal Range RVIDd (AP) 2D 2.7 cm (0.9 - 2.6) RVDdMajor (2D) 3.1 cm (2.2 - 4.4) RAd ISD 4CH 4.5 cm (3.4 - 4.9) RA (A4C)W 3.7 cm (2.9 - 4.6) IVSd (2D) 1.3 cm (0.6 - 1) LVPWd (2D) 1.3 cm (0.6 - 1) LVIDd (2D) 3.7 cm (3.6 - 5.4) LVIDs (2D) 2.9 cm - LV FS (2D) 22 % (25 - 45) Aortic Annulus 2.3 cm (1.4 - 2.6) Ao root diameter (2D) 3.7 cm (2.1 - 3.5) Ascending Ao 3.5 cm (2.1 - 3.4) LA dimension (AP) 2D 3 cm (2.3 - 3.8) LAd ISD 4CH 5.4 cm (2.9 - 5.3) LA ISD 4CH W 3.3 cm (2.5 - 4.5) Name Value Normal Range LA ESV SP 4CH (A/L) 36 ml - LA ESV SP 2CH (A/L) 34 ml - LA ESV BP (A/L) 35 ml - LA ESV BP (A/L) index 17.96 ml/m2 - LA ESV SP 4CH (MOD) 33 ml - LA ESV SP 2CH (MOD) 31 ml - Name Value Normal Range MV E-wave Vmax 0.6 m/sec - MV deceleration time 140 msec - MV A-wave Vmax 0.7 m/sec - MV E:A ratio 0.81 ratio - LV septal e' Vmax 0.07 m/sec - LV lateral e' Vmax 0.06 m/sec - LV E:e' septal ratio 8.57 ratio - LV E:e' lateral ratio 10 ratio - Name Value Normal Range AV Vmax 1.2 m/sec - AV VTI 19.1 cm - AV peak gradient 6.01 mmHg - AV mean gradient 3.16 mmHg - LVOT Vmax 1.1 m/sec - LVOT VTI 13.9 cm - LVOT peak gradient 4.58 mmHg - LVOT mean gradient 2 mmHg - Name Value Normal Range PV Vmax 0.7 m/sec - PV peak gradient 2.23 mmHg -
[2017-09-16] MEDS ORDERED: Insulin GLARGINE(*) 1 UNITS UNIT SUBCUT ONE (11:45)
[2017-09-16] MEDS: Insulin GLARGINE(*) 1 UNITS UNIT SUBCUT SCH (12:46)
[2017-09-16] MEDS ORDERED: Mouth Piece, Nicotine* 1 EACH CARTRIDGE INH PRN (16:35)
[2017-09-16] MEDS: Nicotine Inhaler* 10 MG AMP INH PRN ×2 (16:49→21:19)
[2017-09-16] MEDS: Albuterol HFA INHALER* 8 gm MDI INH PRN (19:34)
[2017-09-16] MEDS: Atorvastatin* 10 MG TAB PO SCH (21:21)
[2017-09-17 05:43] LABS: EGFR Non-African American 95.8 (>60)
[2017-09-17] MEDS: Heparin VIAL(*) 5000 UNITS/ML VIAL (FIVE THOUSAND) SUBCUT SCH ×2 (05:45→16:37)
[2017-09-17] MEDS: Nicotine Inhaler* 10 MG AMP INH PRN ×2 (05:46→09:27)
[2017-09-17] MEDS: Insulin LISPRO* 1 UNITS UNIT SUBCUT SCH ×2 (07:40→12:08)
[2017-09-17] MEDS: Mometasone/Formoter 200/5 MDI INH SCH (07:52)
[2017-09-17] MEDS: levETIRAcetam TAB* 500 MG PO SCH (09:19)
[2017-09-17] MEDS: Metoprolol Tartrate TAB* 25 MG PO SCH (09:19)
[2017-09-17] MEDS: Gabapentin CAP(*) 300 MG PO SCH ×2 (09:20→16:36)
[2017-09-17] MEDS: glipiZIDE TAB* 5 MG PO SCH (09:20)
[2017-09-17] MEDS: guaiFENesin ER TAB 600 MG PO SCH (09:20)
[2017-09-17] MEDS: Nicotine PATCH 14 MG/24 HR* PATCH TRANSDERM SCH (09:21)
[2017-09-17] MEDS: Nicotine Patch Removal NOTE PATCH OFF SCH (09:23)
[2017-09-17] MEDS ORDERED: Regadenoson* 0.4 MG/5 ML SYRINGE ONE (10:06)
[2017-09-17] MEDS ORDERED: Aminophylline IV* 25 MG/ML 10 ML VIAL ONE (10:09)
--- NOTE | 2017-09-17 14:14 | RAD ---
Edited for charges. INDICATION: Chest pain. COMPARISON: There are no prior studies available for comparison. Technique: A single day myocardial perfusion stress study was performed. Initially the resting study was performed. The patient was given an intravenous injection of 10.3 mCi of technetium 99m tetrofosmin and and the heart was imaged in multiple projections. The patient returned later in the day and under the direction of Dr. Raya, the patient was given intervenous injection of Lexiscan. Subsequently the patient was given intravenous injection of 25.3 mCi of technetium 99m tetrofosmin and the heart was imaged in multiple projections. Images were reconstructed in the axial, sagittal and coronal planes and in a 3- D format. FINDINGS: There appears to be global hypokinesis. The left ventricular ejection fraction is calculated to be 34%. Review of the images demonstrates decreased activity in the inferior wall on the post pharmacologic stress and resting images which resolves on the attenuation corrected images most consistent with attenuation artifact. No other focal myocardial perfusion abnormalities are seen. The transit ischemic dilatation ratio is abnormally elevated at 1.25 suggesting the possibility of three-vessel coronary artery disease. The results of this exam were called to the referring clinicians MOISES Ash. IMPRESSION: 1. ELEVATION OF THE TRANSIENT ISCHEMIC DILATATION RATIO SUGGESTING THE POSSIBILITY OF THREE-VESSEL CORONARY ARTERY DISEASE. 2. GLOBAL HYPOKINESIS WITH DECREASED LEFT VENTRICULAR EJECTION FRACTION CALCULATED TO BE 34%. ASSESSMENT: High risk. Based on imaging criteria from ACC/AHA 2002 Guideline Update for the Management of Patients With Chronic Stable Angina Table 23. Noninvasive Risk Stratification. MTDD
--- NOTE | 2017-09-17 14:15 | PN ---
Subjective Date of Service: 09/17/17 Interval History: Patient seen and examined at bedside. Denies CP, SOB although he reports "a twinge last night" and feeling SOB this AM but felt that was due to needing his inhaler. Currently, he is feeling well. Hopeful to go home. Denies any other acute concerns. Mr. Hercules showed me a copy of his labs from Aug [address] Salamanca's office. He reports he was told he had "high sugars" ( A1c 11.0 on document) but hasn't taken the medication he was prescribed very consistently. I provided teaching on diabetes and complications, which includes neuropathy, kidney disease, and vision impairment. He was unaware of this and states that he would be willing to start taking his medication. Awaiting nuclear results prior to determine disposition. Family History: Unchanged from Admission Social History: Unchanged from Admission Past Medical History: Unchanged from Admission Objective Active Medications: Acetaminophen (Tylenol Tab*) 650 mg PO Q6H PRN PRN Reason: FEVER/HEADACHE Last Admin: 09/15/17 05:10 Dose: 650 mg Albuterol (Ventolin Hfa Inhaler*) 2 puff INH Q4H PRN PRN Reason: SOB/WHEEZING Last Admin: 09/16/17 19:34 Dose: 2 puff Albuterol/Ipratropium (Duoneb (Albuterol 2.5 Mg/Ipratropium 0.5 Mg)) 1 neb INH Q6H PRN PRN Reason: SOB/WHEEZING Atorvastatin Calcium (Lipitor*) 10 mg PO BEDTIME [facility] Last Admin: 09/16/17 21:21 Dose: 10 mg Device (Nicotine Mouth Piece*) 1 each INH .USE WITH NICOTROL PRN PRN Reason: CRAVING Last Admin: 09/16/17 16:49 Dose: 1 each Dextrose (D50w Syringe 50 Ml*) 12.5 gm IV PUSH .FOR FS < 60 - SS PRN PRN Reason: FS < 60 Gabapentin (Neurontin Cap(*)) 300 mg PO TID [facility] Last Admin: 09/17/17 09:20 Dose: 300 mg Glipizide (Glucotrol Tab*) 2.5 mg PO DAILY [facility] Last Admin: 09/17/17 09:20 Dose: 2.5 mg Guaifenesin (Mucinex*) 600 mg PO BID [facility] Last Admin: 09/17/17 09:20 Dose: 600 mg Heparin Sodium (Porcine) (Heparin Vial(*)) 5,000 units SUBCUT Q8HR [facility] Last Admin: 09/17/17 05:45 Dose: 5,000 units Insulin Glargine (Lantus(*)) 10 units SUBCUT Q24H [facility] Last Admin: 09/16/17 12:46 Dose: 10 units Insulin Human Lispro (Humalog*) 0 units SUBCUT ACHS [facility] PRN Reason: Protocol Last Admin: 09/17/17 12:08 Dose: Not Given Levetiracetam (Keppra Tab*) 500 mg PO BID [facility] Last Admin: 09/17/17 09:19 Dose: 500 mg Metoprolol Tartrate (Lopressor Tab*) 12.5 mg PO Q12HR [facility] Last Admin: 09/17/17 09:19 Dose: 12.5 mg Mometasone Furoate/Formoterol Fumar (Dulera 200/5 Mdi*) 2 puff INH BID [facility] Last Admin: 09/17/17 07:52 Dose: Not Given Morphine Sulfate (Morphine Inj (Syringe)*) 2 mg IV Q4H PRN PRN Reason: PAIN - CHEST Nicotine (Nicotine Patch 14 Mg/24 Hr*) 1 patch TRANSDERM DAILY [facility] Last Admin: 09/17/17 09:21 Dose: 1 patch Nicotine (Nicotine Inhaler*) 10 mg INH Q2H PRN PRN Reason: CRAVING Last Admin: 09/17/17 09:27 Dose: 10 mg Ondansetron HCl (Zofran Inj*) 4 mg IV Q8H PRN PRN Reason: NAUSEA Pharmacy Profile Note (Nicotine Patch Removal Note*) 1 note PATCH OFF 0800 [facility] Last Admin: 09/17/17 09:23 Dose: 1 note Polyethylene Glycol/Electrolytes (Miralax*) 17 gm PO DAILY PRN PRN Reason: CONSTIPATION Vital Signs - 8 hr 09/17/17 09/17/17 09/17/17 07:31 07:37 07:50 Temperature 98.5 F Pulse Rate 97 97 Respiratory 16 20 16 Rate Blood Pressure 128/85 (mmHg) O2 Sat by Pulse 97 97 Oximetry 09/17/17 09/17/17 09:20 12:10 Temperature 98.5 F Pulse Rate 88 Respiratory 18 Rate Blood Pressure 117/96 (mmHg) O2 Sat by Pulse 100 Oximetry Oxygen Devices in Use Now: None Appearance: Older male, sitting on edge of bed, NAD Eyes: No Scleral Icterus Ears/Nose/Mouth/Throat: Clear Oropharnyx, Mucous Membranes Moist Neck: NL Appearance and Movements; NL JVP Respiratory: Symmetrical Chest Expansion and Respiratory Effort, Clear to Auscultation, - - bilateral posterior faint expiratory wheezing noted Cardiovascular: NL Sounds; No Murmurs; No JVD, RRR Abdominal: NL Sounds; No Tenderness; No Distention Extremities: No Edema, No Clubbing, Cyanosis Skin: No Rash or Ulcers, No Nodules or Sclerosis Neurological: Alert and Oriented x 3, NL Muscle Strength and Tone Lines/Tubes/Other Access: Clean, Dry and Intact Peripheral IV Nutrition: Taking PO's Result Diagrams: 09/15/17 13:31 09/17/17 05:02 Additional Lab and Data: Lab Results 09/14/17 09/14/17 09/14/17 Range/Units 17:20 17:20 17:20 WBC 10.9 H (3.5-10.8) 10^3/ul RBC 5.65 H (4.0-5.4) 10^6/ul Hgb 16.3 (14.0-18.0) g/dl Hct 47 (42-52) % MCV 84 (80-94) fL MCH 29 (27-31) pg MCHC 34 (31-36) g/dl RDW 13 (10.5-15) % Plt Count 306 (150-450) 10^3/ul MPV 7 L (7.4-10.4) um3 Neut % (Auto) 59.7 (38-83) % Lymph % (Auto) 28.8 (25-47) % Dewey % (Auto) 7.2 H (0-7) % Eos % (Auto) 2.8 (0-6) % Baso % (Auto) 1.5 (0-2) % Absolute Neuts (auto) 6.5 (1.5-7.7) 10^3/ul Absolute Lymphs (auto) 3.1 (1.0-4.8) 10^3/ul Absolute Monos (auto) 0.8 (0-0.8) 10^3/ul Absolute Eos (auto) 0.3 (0-0.6) 10^3/ul Absolute Basos (auto) 0.2 (0-0.2) 10^3/ul Absolute Nucleated RBC 0 10^3/ul Nucleated RBC % 0 INR (Anticoag Therapy) 0.88 (0.77-1.02) APTT 28.5 (26.0-36.3) seconds D-Dimer, Quantitative < 200 (Less Than 230) ng/mL Sodium (133-145) mmol/L Potassium (3.5-5.0) mmol/L Chloride (101-111) mmol/L Carbon Dioxide (22-32) mmol/L Anion Gap (2-11) mmol/L BUN (6-24) mg/dL Creatinine (0.67-1.17) mg/dL Est GFR ( Amer) (>60) Est GFR (Non-Af Amer) (>60) BUN/Creatinine Ratio (8-20) Glucose (70-100) mg/dL Lactic Acid (0.5-2.0) mmol/L Calcium (8.6-10.3) mg/dL Magnesium (1.9-2.7) mg/dL Total Bilirubin (0.2-1.0) mg/dL AST (13-39) U/L ALT (7-52) U/L Alkaline Phosphatase (34-104) U/L Total Creatine Kinase (10-223) U/L CK-MB (CK-2) (0.6-6.3) ng/mL Troponin I (<0.04) ng/mL B-Natriuretic Peptide 14 ( - 100) pg/mL Total Protein (6.4-8.9) g/dL Albumin (3.2-5.2) g/dL Globulin (2-4) g/dL Albumin/Globulin Ratio (1-3) TSH (0.34-5.60) mcIU/mL 09/14/17 09/14/17 Range/Units 17:20 17:20 WBC (3.5-10.8) 10^3/ul RBC (4.0-5.4) 10^6/ul Hgb (14.0-18.0) g/dl Hct (42-52) % MCV (80-94) fL MCH (27-31) pg MCHC (31-36) g/dl RDW (10.5-15) % Plt Count (150-450) 10^3/ul MPV (7.4-10.4) um3 Neut % (Auto) (38-83) % Lymph % (Auto) (25-47) % Dewey % (Auto) (0-7) % Eos % (Auto) (0-6) % Baso % (Auto) (0-2) % Absolute Neuts (auto) (1.5-7.7) 10^3/ul Absolute Lymphs (auto) (1.0-4.8) 10^3/ul Absolute Monos (auto) (0-0.8) 10^3/ul Absolute Eos (auto) (0-0.6) 10^3/ul Absolute Basos (auto) (0-0.2) 10^3/ul Absolute Nucleated RBC 10^3/ul Nucleated RBC % INR (Anticoag Therapy) (0.77-1.02) APTT (26.0-36.3) seconds D-Dimer, Quantitative (Less Than 230) ng/mL Sodium 132 L (133-145) mmol/L Potassium 4.3 (3.5-5.0) mmol/L Chloride 99 L (101-111) mmol/L Carbon Dioxide 25 (22-32) mmol/L Anion Gap 8 (2-11) mmol/L BUN 13 (6-24) mg/dL Creatinine 0.85 (0.67-1.17) mg/dL Est GFR ( Amer) 118.2 (>60) Est GFR (Non-Af Amer) 91.9 (>60) BUN/Creatinine Ratio 15.3 (8-20) Glucose 334 H (70-100) mg/dL Lactic Acid 1.9 (0.5-2.0) mmol/L Calcium 9.4 (8.6-10.3) mg/dL Magnesium 2.0 (1.9-2.7) mg/dL Total Bilirubin 0.70 (0.2-1.0) mg/dL AST 10 L (13-39) U/L ALT 9 (7-52) U/L Alkaline Phosphatase 62 (34-104) U/L Total Creatine Kinase 66 (10-223) U/L CK-MB (CK-2) 3.5 (0.6-6.3) ng/mL Troponin I 0.00 (<0.04) ng/mL B-Natriuretic Peptide ( - 100) pg/mL Total Protein 6.9 (6.4-8.9) g/dL Albumin 4.1 (3.2-5.2) g/dL Globulin 2.8 (2-4) g/dL Albumin/Globulin Ratio 1.5 (1-3) TSH 1.48 (0.34-5.60) mcIU/mL Diagnostic Imagin09/16/17 Transthoracic Echocardiogram Indication: CP BP: 127/93 HR: 56 Rhythm: Bradycardia Findings History: Psyche issues,CAD,COPD,DM,HTN,smoker. Technical Comments: The study quality is good. Completed at 0944. Left Ventricle: The left ventricular chamber size is normal. Mild to moderate concentric left ventricular hypertrophy is observed. Global left ventricular wall motion and contractility are within normal limits. Left ventricular systolic function is at the lower limits of normal. The estimated ejection fraction is 50-55%. Abnormal left ventricular diastolic function is observed. Left Atrium: The left atrial chamber size is normal. Right Ventricle: The right ventricular chamber size and systolic function are within normal limits. Right Atrium: The right atrial cavity size is normal. Aortic Valve: The aortic valve is trileaflet. The aortic valve leaflets are mildly thickened. There is a trace of aortic regurgitation. There is no evidence of aortic stenosis. Mitral Valve: The mitral valve leaflets appear normal. There is no evidence of mitral regurgitation. There is no evidence of mitral stenosis. Tricuspid Valve: The tricuspid valve leaflets are normal. There is trace tricuspid regurgitation. Unable to estimate the right ventricular systolic pressure. There is no tricuspid stenosis. Pulmonic Valve: The pulmonic valve appears normal. There is a trace pulmonic regurgitation. There is no pulmonic stenosis. Pericardium: There is no significant pericardial effusion. Aorta: There is no dilatation of the ascending aorta. The aortic arch is not well visualized. There is mild dilatation of the aortic root. Pulmonary Artery: The main pulmonary artery is not well visualized. Venous: The venous system is not well visualized. Conclusions The left ventricular chamber size is normal. Mild to moderate (more consistent with mild) concentric left ventricular hypertrophy is observed. Left ventricular systolic function is at the lower limits of normal. The estimated ejection fraction is 50-55%. The left atrial chamber size is normal. The right ventricular chamber size and systolic function are within normal limits. No significant valvular abnormalities noted There is no significant pericardial effusion. There is mild dilatation of the aortic root. None prior for comparison at time of interpretation Measurements Name Value Normal Range RVIDd (AP) 2D 2.7 cm (0.9 - 2.6) RVDdMajor (2D) 3.1 cm (2.2 - 4.4) RAd ISD 4CH 4.5 cm (3.4 - 4.9) RA (A4C)W 3.7 cm (2.9 - 4.6) IVSd (2D) 1.3 cm (0.6 - 1) LVPWd (2D) 1.3 cm (0.6 - 1) LVIDd (2D) 3.7 cm (3.6 - 5.4) LVIDs (2D) 2.9 cm - LV FS (2D) 22 % (25 - 45) Aortic Annulus 2.3 cm (1.4 - 2.6) Ao root diameter (2D) 3.7 cm (2.1 - 3.5) Ascending Ao 3.5 cm (2.1 - 3.4) LA dimension (AP) 2D 3 cm (2.3 - 3.8) LAd ISD 4CH 5.4 cm (2.9 - 5.3) LA ISD 4CH W 3.3 cm (2.5 - 4.5) Name Value Normal Range LA ESV SP 4CH (A/L) 36 ml - LA ESV SP 2CH (A/L) 34 ml - LA ESV BP (A/L) 35 ml - LA ESV BP (A/L) index 17.96 ml/m2 - LA ESV SP 4CH (MOD) 33 ml - LA ESV SP 2CH (MOD) 31 ml - Name Value Normal Range MV E-wave Vmax 0.6 m/sec - MV deceleration time 140 msec - MV A-wave Vmax 0.7 m/sec - MV E:A ratio 0.81 ratio - LV septal e' Vmax 0.07 m/sec - LV lateral e' Vmax 0.06 m/sec - LV E:e' septal ratio 8.57 ratio - LV E:e' lateral ratio 10 ratio - Name Value Normal Range AV Vmax 1.2 m/sec - AV VTI 19.1 cm - AV peak gradient 6.01 mmHg - AV mean gradient 3.16 mmHg - LVOT Vmax 1.1 m/sec - LVOT VTI 13.9 cm - LVOT peak gradient 4.58 mmHg - LVOT mean gradient 2 mmHg - Name Value Normal Range PV Vmax 0.7 m/sec - PV peak gradient 2.23 mmHg - Assess/Plan/Problems-Billing Assessment: 62 yo M with h/o HTN, DM2, schizophrenia, COPD presents with c/o CP - Patient Problems (1) Chest pain Code(s): R07.9 - CHEST PAIN, UNSPECIFIED Comment: Nuclear stress test this AM, results pending Tx with ASA, Lipitor started at admission Fasting lipid profile WNL except for LDLs Echocardiogram shows mild to mod LVH, EF 50-55% (2) HTN (hypertension) Code(s): I10 - ESSENTIAL (PRIMARY) HYPERTENSION Comment: Normotensive with metoprolol, HR better controlled Metoprolol started on 09/15/17 (3) History of COPD Code(s): Z87.09 - PERSONAL HISTORY OF OTHER DISEASES OF THE RESPIRATORY SYSTEM Comment: Cont Dulera CTA shows mucous plugging. No evidence of acute infection, encouraged to cough. (4) DM2 (diabetes mellitus, type 2) Comment: HbA1C at 11.4 with med noncompliance. Obtain med list from PCP to determine medications patient should be on. Continue glipizide, ISS, started Lantus on 09/15/17. (5) Hyperlipemia Code(s): E78.5 - HYPERLIPIDEMIA, UNSPECIFIED Comment: LDL 65, cont Lipitor. (6) Schizophrenia Code(s): F20.9 - SCHIZOPHRENIA, UNSPECIFIED Comment: Receives injectable Abilify as outpatient (7) Seizure Code(s): R56.9 - UNSPECIFIED CONVULSIONS Comment: Vague h/o seizure disorder, cont Keppra for now. (8) DVT prophylaxis Comment: HSQ Status and Disposition: Inpatient due to the need of stress test. Dispo pending stress test results.
[2017-09-17 16:02] VITALS: BP 136/101
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
[2017-09-17] MEDS: Insulin GLARGINE(*) 1 UNITS UNIT SUBCUT SCH (16:36)
--- NOTE | 2017-09-17 22:15 | CONS ---
CC: Guero Rutherford * CARDIOLOGY CONSULT: DATE OF CONSULT: 09/17/17 INDICATION FOR CONSULT: Chest pain, abnormal stress test. HISTORY OF PRESENT ILLNESS: The patient is a 62-year-old gentleman with a history of smoking, history of possible 2-vessel coronary artery disease, who was admitted to the hospital with chest pain. The patient states that he woke up from sound sleep with onset of chest pressure. He says he often has some degree of chest discomfort, but it lasts just a few minutes and then resolves on its own. However, this episode lasted much longer. It did radiate up in to his shoulder and he did have some mild diaphoresis associated with it. At that time, he decided to come to the emergency room for evaluation. In the emergency room, his EKG was unremarkable. His first troponin level was negative. The patient ruled out for myocardial infarction. He had a CT scan of his chest, which showed no evidence of pulmonary embolism or dissection. The patient subsequently underwent a chemical nuclear stress test. This demonstrated no clear areas of ischemia or infarction. His calculated ejection fraction was 35%. His TID was mildly elevated at 1.25. The patient did have an echocardiogram, which showed low normal LV systolic function with ejection fraction of 50% to 55% and no significant valvular abnormalities. In speaking with the patient today, he has no chest pain or shortness of breath since being admitted to the hospital. PAST MEDICAL HISTORY: Significant for psychiatric diagnosis of paranoid schizophrenia. He also reports coronary artery disease. The patient states he had a cardiac catheterization 4 to 5 years ago up at [facility] which showed 2-vessel disease, history of hypertension. OUTPATIENT MEDICATIONS: 1. Gabapentin. 2. Albuterol inhaler. 3. Advair Diskus. 4. Abilify IM once a month. The patient does state that he takes a cholesterol medication, although there is no documentation of that. ALLERGIES: No known drug allergies. FAMILY HISTORY: Father of a myocardial infarction at 58. Mother had diabetes. SOCIAL HISTORY: The patient smokes 7 to 10 cigarettes a day. He denies significant alcohol intake. 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 REVIEW OF SYSTEMS: As per his intake sheet. PHYSICAL EXAM: Height is 5 feet 6 inches, weight is 180 pounds. Blood pressure 128/85, temperature 98.5, heart rate is 88, respiratory rate is 16, oxygen saturation 97% on room air. Sclerae anicteric. Oropharynx is pink without erythema. Carotids are 2+ without bruits. JVD is normal. Thyroid is normal. Cardiac Exam: S1, S2 without any murmurs, rubs, or gallops. Lungs are clear to auscultation. There is no dullness to percussion. Abdomen is soft, nontender, nondistended with normoactive bowel sounds. Extremities show no edema. He has 2+ pulses throughout. The patient is awake, alert, and oriented. He moves all 4 extremities equally. DIAGNOSTIC STUDIES/LAB DATA: EKG demonstrates normal sinus rhythm with normal axis and intervals. Chemistry is within normal limits. BUN 14, creatinine 0.83. TSH is normal at 1.48. CBC within normal limits. IMPRESSION: This is a 62-year-old gentleman, who is admitted to the hospital with chest pain. He ruled out for myocardial infarction. He had no troponin elevation and no EKG changes. His nuclear images do show a reduced left ventricular systolic function calculated at 34%. Visually, the ejection fraction is better than that. He does have a mild dilatation of his left ventricle with Lexiscan infusion. His calculated TID is 1.25. In general, I think it is more significant if the TID is greater than 1.3 with Lexiscan infusion. The ejection fraction is 50% to 55% on echocardiogram. PLAN: For now, my recommendation is the patient be continued on maximal medical therapy. The patient should be on a statin therapy. He should be on aspirin 81 mg a day. He should be on low dose beta-tesha. My office will try to get hold of his cardiac catheterization from a few years ago. I will see the patient in followup in 3 to 4 weeks. [id number]/[facility] #: [id number] [facility]
--- NOTE | 2017-09-18 14:21 | DS ---
AMENDED REPORT NOW INCLUDES COSIGNER DESIGNATION - ESIGNED BEFORE ADJUSTMENT CC: Dr. Avtar Salamanca * DISCHARGE SUMMARY: DATE OF ADMISSION: 09/15/17 DATE OF DISCHARGE: 09/17/17 PRIMARY CARE PROVIDER: Dr. Avtar Salamanca. PROVIDER: Cira Foster NP ATTENDING PHYSICIAN: Paco Copeland MD * (as dictated by Cira Foster NP) . CONSULTING PHYSICIAN: Troy Lowery MD PRIMARY DISCHARGE DIAGNOSES: 1. Chest pain. 2. Uncontrolled type 2 diabetes. SECONDARY DISCHARGE DIAGNOSES: 1. Chronic obstructive pulmonary disease. 2. History of schizophrenia and psychosis, not in acute exacerbation. 3. History of coronary artery disease. 4. Diabetic neuropathy. 5. Hypertension. MEDICATIONS AT DISCHARGE: 1. Zestoretic 20/, 1 tab daily. 2. Aspirin 81 mg daily. 3. Aripiprazole 400 mg IM monthly. 4. Simvastatin 20 mg daily. 5. Levetiracetam 500 mg b.i.d. 6. Advair 250/50, 1 puff inhale b.i.d. 7. Gabapentin 300 mg t.i.d. 8. Albuterol inhaler 2 puffs inhaled q.4 hours p.r.n. 9. Glipizide 10 mg b.i.d. 10. Pioglitazone 45 mg daily. 11. Metformin ER 500 mg b.i.d. 12. Guaifenesin ER 600 mg b.i.d. This is a new medication x 7 days. Please note this list was obtained from the office and was read to me by one of the office staff. HOSPITAL COURSE OF STAY: For full details, please refer to the full medical record as well as H and P provided by GUILLERMO Amador, on 09/14/17. In summary, Mr. Hercules is a very pleasant 62-year-old male, who reported to the ER after feeling chest heaviness and pressure that awoke him from a nap. This is a gentleman with multiple risk factors which does include diabetes mellitus and self-reported history of coronary artery disease and hypertension. He also reports a family history of his father dying from heart disease as well as a previous history of 2- vessel disease at [facility], although records are not available from this. The patient's troponins were negative and no EKG changes to indicate ischemia were noted. However, given this presentation and the chest pain that occurred at rest, he was kept here at the hospital until a stress test was able to be done. The patient's chemical nuclear stress test portion in the heart institute did not show any signs of ischemia; however, his nuclear medicine scan was labeled high risk with concern for elevation of the transient ischemic dilatation ratio suggesting the possibility of 3-vessel coronary artery disease as well as global hypokinesis with decreased left ventricular ejection fraction calculated to be 34%. Due to these findings, Dr. Lowery was consulted for review of the patient's medical record and imaging. He did see the patient in consultation. For more information regarding this, please refer to the consultation dictated by Cardiology. At this point in time , it was felt that the patient should continue with medical management and should follow up closely with Dr. Lowery in the office within 3 to 4 weeks. I did call for an appointment for the patient and obtained a followup within this time period for him. The patient should continue on aspirin, which he states he is already taking. He is also to continue his statin medication. His lipid profile is reasonable considering his therapy. The patient was noted to be tachycardic and hypotensive here in the hospital and was started on metoprolol. However, in obtaining his medication list from his office, I do note that he is not on all of his home medications, so I have discontinued the metoprolol for the time being and the patient should continue on his lisinopril/ hydrochlorothiazide. Further medication adjustments can be made in followup with his PCP and/or Cardiology. In regards to his diabetes, I did discuss with the patient that his A1c is 11. I did note that during our conversation today, he reports that he does not take his diabetes medications as prescribed. We had a long discussion about diabetic complications and he seems surprised that diabetes can cause things like neuropathy, although he is already on gabapentin for his neuropathy. He seems more motivated to start taking his medications, but I did explain to him the association between heart disease and diabetes as well as some of his other chronic issues. A educator senior clinical consult was placed and he has a meeting with the educator senior clinical from [facility] prior to discharge. At this point in time, I do note that he was previously prescribed Actos, glipizide, and metformin. He has mostly maxed out on the glipizide and Actos, although he has some room to titrate his metformin. At this point in time, I think it is reasonable for the patient to continue these medications since he has not been taking them, so it does not appear to be a failure in therapy. However, I did discuss with him that he may need insulin should he continue to not take his oral medications; again, he does seem motivated to try to do so. I did send a 30-day prescription just to ensure that the patient has medications available to him, although he states that he does have them at home. I do appreciate Christa Cano, nurse practitioner, coming over from [facility] to meet with the patient prior to discharge. Also of note, Mr. Hercules was noted to have some mucus plugging on his CTA and has been encouraged to cough and deep breathe. He has been receiving guaifenesin here in the facility and is prescribed an additional 7 days as an outpatient; again he is encouraged to cough and deep breathe in order to help promote expectoration. OUTPATIENT FOLLOWUP NEEDS: Again, Mr. Hercules needs to follow up with his PCP in 5- 7 days , as well as with Dr. Lowery in 3 to 4 weeks. Appointment is already scheduled for this. Mucus plugging is noted and the patient should be monitored for signs of respiratory distress and encouraged to continue pulmonary toileting at home. DIET: Consistent carbohydrate diet. ACTIVITY: As tolerated. CONDITION: Stable. DISPOSITION: To home. TIME SPENT: Time spent on this discharge was approximately 45 minutes. Again, this is only a brief summary of the patient's hospital course of stay. For full details, please refer to the full medical record. If you have any further questions or need further assistance, please feel free to contact me at [phone]. CIRA FOSTER, IDENTIFICATION TECHNICIAN [id number]/[facility] #: [id number] RAMAKRISHNA
== END 2017-09-17 17:45 | disposition home or self-care (01) | DRG 303 ==
LOC: ED 16:40 → MEDTELE 17:59 → OBSVTOIN 09-15 11:23
PROVIDERS: ADMIT Internal Medicine; ATTEND Internal Medicine
DX: I25.10 Atherosclerotic heart disease of native coronary artery without angina pectoris (principal); T17.890A Other foreign object in other parts of respiratory tract causing asphyxiation, initial encounter; E11.40 Type 2 diabetes mellitus with diabetic neuropathy, unspecified; E11.65 Type 2 diabetes mellitus with hyperglycemia; F20.0 Paranoid schizophrenia; J98.11 Atelectasis; I11.9 Hypertensive heart disease without heart failure; R07.9 Chest pain, unspecified; J44.9 Chronic obstructive pulmonary disease, unspecified; E78.5 Hyperlipidemia, unspecified; G40.909 Epilepsy, unspecified, not intractable, without status epilepticus; F17.210 Nicotine dependence, cigarettes, uncomplicated; Z79.84 Long term (current) use of oral hypoglycemic drugs; Z79.899 Other long term (current) drug therapy; Z82.49 Family history of ischemic heart disease and other diseases of the circulatory system; Z83.3 Family history of diabetes mellitus; X58.XXXA Exposure to other specified factors, initial encounter
CPT/HCPCS: 36415; 71045; 71275; 78452; 80048; 80053; 80061; 81003; 82550; 82553; 82565; 82947; 83036; 83605; 83735; 83880; 84443; 84484; 84520; 85025; 85379; 85610; 85730; 93005; 93017; 93306; 94640; 99221; 99283; A9270-GY; A9502; G0378; J0280; J1644; J2785; Q9967

== ENCOUNTER 2019-01-08 23:27 | Emergency (ER) | payer MEDICARE, MEDICAID ==
[2019-01-08] MEDS ORDERED: Albuterol 2.5 MG/3 ML NEB.SOL* (0.083%) INH ONE (23:43)
[2019-01-08 23:59] LABS: ABS Basophils 0.1 10^3/ul (0-0.2); ABS Eosinophils 0.5 10^3/ul (0-0.6); ABS Lymphocytes 1.9 10^3/ul (1.0-4.8); ABS Monocytes 0.7 10^3/ul (0-0.8); ABS Neutrophils 4.5 10^3/ul (1.5-7.7); Eosinophil % 6.1 %; Hematocrit 43 % (42-52); Hemoglobin 14.3 g/dL (14.0-18.0); Lymphocyte % 24.4 %; Mean Corpuscular HGB Conc 34 g/dL (31-36); Mean Corpuscular Hemoglobin 29 pg (27-31); Mean Corpuscular Volume 85 fL (80-94); Mean Platelet Volume 7.2 fL (7.4-10.4); Nucleated Red Blood Cells % 0.1; Platelet Count 302 10^3/uL (150-450); Red Blood Count 5.02 10^6 /uL (4.18-5.48); Red Cell Distribution Width 13 % (10-15); White Blood Count 7.6 10^3/uL (3.5-10.8)
--- NOTE | 2019-01-09 00:01 | ED ---
Lower Extremity - HPI Summary HPI Summary: Pt is a 63 y/o M presenting to the ED with a chief complaint of lower extremity edema initially onset over the weekend, but increased since 01/06/19. He reports pain in his bilateral legs, as well as shortness of breath. He has hx of COPD, HTN, DM, and does not take his medication, have a PCP, or have his inhalers at home. He has no hx of heart problems. - History of Current Complaint Chief Complaint: EDExtremityLower Stated Complaint: SWOLLEN FEET PER EMS Time Seen by Provider: 01/08/19 23:37 Hx Obtained From: Patient Mechanism Of Injury: Unknown Onset of Pain: Days Onset/Duration: Still Present Severity Initially: Moderate Severity Currently: Severe Pain Intensity: 8 Pain Scale Used: 0-10 Numeric Timing: Constant, Lasting Days Location: Is Diffuse - bilat LE Character Of Pain: Aching Associated Signs And Symptoms: Positive: Swelling Aggravating Factor(s): Nothing Alleviating Factor(s): Nothing Able to Bear Weight: Yes - Allergies/Home Medications Allergies/Adverse Reactions: Allergies Allergy/AdvReac Type Severity Reaction Status Date / Time No Known Allergies Allergy Verified 03/10/15 10:44 PMH/Surg Hx/FS Hx/Imm Hx Previously Healthy: No Endocrine/Hematology History: Reports: Hx Diabetes Denies: Hx Anemia Cardiovascular History: Reports: Hx Angina, Hx Coronary Artery Disease, Hx Hypercholesterolemia, Hx Hypertension Denies: Hx Congestive Heart Failure, Hx Myocardial Infarction, Hx Valvular Heart Disease Respiratory History: Reports: Hx Asthma, Hx Chronic Obstructive Pulmonary Disease (COPD), Hx Lung Cancer - per patient, stated he did not want treatment Denies: Hx Pleural Effusion, Hx Pulmonary Edema, Hx Sleep Apnea GI History: Denies: Hx Cirrhosis, Hx Diverticulosis, Hx Gastroesophageal Reflux Disease, Hx Gastrointestinal Bleed, Hx Jaundice, Hx Ileostomy, Hx Ulcer History: Denies: Hx Benign Prostatic Hyperplasia, Hx Kidney Stones Musculoskeletal History: Denies: Hx Arthritis, Hx Bursitis, Hx Osteoporosis, Hx Tendonitis Sensory History: Denies: Hx Cataracts, Hx Contacts or Glasses, Hx Eye Injury, Hx Eye Prosthesis, Hx Glaucoma, Hx Macular Degeneration, Hx Vision Problem, Hx Hearing Aid, Hx Hearing Problem Opthamlomology History: Denies: Hx Cataracts, Hx Contacts or Glasses, Hx Eye Injury, Hx Eye Prosthesis, Hx Glaucoma, Hx Macular Degeneration, Hx Vision Problem Neurological History: Reports: Hx Headaches, Hx Seizures Psychiatric History: Reports: Hx Anxiety, Hx Depression, Hx Community Mental Health Tx, Hx Schizophrenia, Hx Suicide Attempt Denies: Hx Eating Disorder, Hx of Violent Episodes Against Others - Cancer History Cancer Type, Location and Year: Pt states he has lung cancer but is not seeking treatment for it. No [facility] records confirm diagnosis of lung cancer Infectious Disease History: No Infectious Disease History: Denies: Hx of Known/Suspected MRSA, Hx Known/Suspected VRE, Hx Known/ Suspected VRSA, Traveled Outside the [place] in Last 30 Days - Family History Known Family History: Positive: Cardiac Disease - in father, Diabetes - in mother - Social History Alcohol Use: Occasionally Hx Substance Use: No Substance Use Type: Reports: None Hx Tobacco Use: Yes Smoking Status (MU): Current Every Day Smoker Type: Cigarettes Review of Systems Positive: Shortness Of Breath Positive: Myalgia, Edema All Other Systems Reviewed And Are Negative: Yes Physical Exam - Summary Physical Exam Summary: Appearance: Disheveled, appears to be older than stated age, NAD Skin: Warm, dry, superficial skin irritation on bilateral LE Eyes: sclera anicteric, no conjunctival pallor ENT: mucous membranes moist, pharynx appears normal Neck: Supple, nontender Respiratory: Diffuse expiratory wheezes between aeration Cardiovascular: Normal S1, S2. No murmurs. Normal distal pulses in tibial and radial bilaterally. Abdomen: Soft, nontender, normal active bowel sounds present Musculoskeletal: Bilateral mild pitting edema to the mid-leg with some superficial skin irritation. Neurological: A&Ox3, awake and alert, mentation is normal, speech is fluent and appropriate Psychiatric: affect is normal, does not appear anxious or depressed Triage Information Reviewed: Yes Vital Signs On Initial Exam: Initial Vitals Temp Pulse Resp BP Pulse Ox 97.5 F 86 18 154/103 99 01/08/19 23:33 01/08/19 23:33 01/08/19 23:33 01/08/19 23:33 01/08/19 23:33 Vital Signs Reviewed: Yes Diagnostics - Vital Signs Vital Signs Temp Pulse Resp BP Pulse Ox 01/08/19 23:33 97.5 F 86 18 154/103 99 - Laboratory Result Diagrams: 01/08/19 23:52 01/08/19 23:52 Lab Statement: Any lab studies that have been ordered have been reviewed, and results considered in the medical decision making process. - Radiology CXR Radiology Interpretation Completed By: ED Physician Summary of Radiographic Findings: No acute process, pending official radiology report. - EKG 0000 Cardiac Rate: NL - 81bpm EKG Rhythm: Sinus Rhythm ST Segment: Normal Ectopy: None Summary of EKG Findings: EKG at 0000 shows NSR at 81bpm, P waves, QRS complex, and T waves are within normal limits, T waves and intervals are normal, no ischemic changes. This is a normal EKG. Lower Extremity Course/Dx - Course Course Of Treatment: Pt is a 63 y/o M presenting to the ED with a chief complaint of lower extremity edema initially onset over the weekend, but increased since 01/06/19. He reports pain in his bilateral legs, as well as shortness of breath. He has hx of COPD, HTN, DM, and does not take his medication, have a PCP, or have his inhalers at home. He has no hx of heart problems. EKG at 0000 shows NSR at 81bpm, P waves, QRS complex, and T waves are within normal limits, T waves and intervals are normal, no ischemic changes. This is a normal EKG. Pt's lab results are WNL. CXR shows: No acute process, pending official radiology report. Pt will be sent home with dx of LE edema and poorly controlled diabetes. He is stable and agreeable with this plan. - Diagnoses Provider Diagnoses: Lower extremity edema, Poorly controlled diabetes mellitus Discharge - Sign-Out/Discharge Documenting (check all that apply): Patient Departure Patient Received Moderate/Deep Sedation with Procedure: No - Discharge Plan Condition: Good Disposition: HOME Prescriptions: Albuterol HFA INHALER* [Ventolin HFA Inhaler*] 1 - 2 puff INH Q4H PRN #1 mdi PRN Reason: Wheezing Furosemide TAB* [Lasix TAB*] 20 mg PO DAILY #15 tab Patient Education Materials: Foot Care for People with Diabetes (ED), Leg Edema (ED) Referrals: [facility] [Outside] Valentino Salamanca MD [Primary Care Provider] - Additional Instructions: An ED visit cannot begin to address the many physical problems you have, and by not taking the medication prescribed to you and continuing to smoke you are actively making these problems worse. I strongly recommend that you resume taking the medication prescribed for you and talk to your regular doctor about alternatives if you do not want to be taking so many pills. The leg swelling can be addressed by keeping the legs elevated and using the low dose diuretic I have prescribed. - Billing Disposition and Condition Condition: GOOD Disposition: Home - Attestation Statements Document Initiated by Amandeep: Yes Documenting Scribe: Deborah Raphael Provider For Whom Amandeep is Documenting (Include Credential): Jhon Garcia MD. Scribe Attestation: I, Deborah Raphael, scribed for Jhon Garcia MD. on 01/09/19 at 0538. Scribe Documentation Reviewed: Yes Provider Attestation: The documentation as recorded by the Deborah longoria accurately reflects the service I personally performed and the decisions made by me, Jhon Garcia MD. Status of Scribe Document: Viewed
[2019-01-09 00:17] LABS: Albumin 3.8 g/dL (3.2-5.2); Albumin/Globulin Ratio 1.3 (1-3); BUN/Creatinine Ratio 15.9 (8-20); EGFR African American 106.5 (>60); Potassium 4.8 mmol/L (3.5-5.0); Total Bilirubin 0.5 mg/dL (0.2-1.0); Total Protein 6.8 g/dL (6.4-8.9)
[2019-01-09] MEDS ORDERED: Ibuprofen TAB* 400 MG PO ONE (00:52)
[2019-01-09] MEDS ORDERED: Furosemide TAB* 20 MG PO ONE (01:01)
[2019-01-09 01:23] VITALS: BP 159/114
== END 2019-01-09 01:20 | disposition home or self-care (01) ==
LOC: ED 23:27
DX: R60.0 Localized edema (principal); R06.02 Shortness of breath; E11.9 Type 2 diabetes mellitus without complications; I25.10 Atherosclerotic heart disease of native coronary artery without angina pectoris; I10 Essential (primary) hypertension; J44.9 Chronic obstructive pulmonary disease, unspecified; Z82.49 Family history of ischemic heart disease and other diseases of the circulatory system; Z83.3 Family history of diabetes mellitus; F17.210 Nicotine dependence, cigarettes, uncomplicated
CPT/HCPCS: 36415; 71046; 80053; 83880; 84484; 85025; 93005; 99283; A9270-GY

== ENCOUNTER 2021-12-09 09:47 | Inpatient (IN) ==
[2021-12-09] MEDS ORDERED: cefTRIAXone 2 gm/50 mL D5W 2 GM/50 ML BAG IV ONE (11:19)
[2021-12-09] MEDS ORDERED: LACTATED RINGERS IV ONE (11:19)
[2021-12-09] MEDS ORDERED: Vancomycin 1,250 MG in NS 0.9% 250 ml 250 ML IVPB ONE (11:45)
[2021-12-09 14:07] LABS: Hematocrit 46 % (42-52); Hemoglobin 15.2 g/dL (14.0-18.0); Mean Corpuscular HGB Conc 33 g/dL (31-36); Mean Corpuscular Hemoglobin 28 pg (27-31); Mean Corpuscular Volume 84 fL (80-94); Mean Platelet Volume 8.4 fL (7.4-10.4); Platelet Count 464 10^3/uL (150-450); Red Cell Distribution Width 13 % (10-15); White Blood Count 17.8 10^3/uL (3.5-10.8)
[2021-12-09 14:46] LABS: ALT 11 U/L (7-52); Albumin 3.4 g/dL (3.2-5.2); Alkaline Phosphatase 89 U/L (35-149); Blood Urea Nitrogen 13 mg/dL (6-24); C Reactive Protein 268.24 mg/L (<8.01); CO2 Carbon Dioxide 27 mmol/L (22-32); Calcium 8.4 mg/dL (8.6-10.3); Chloride 91 mmol/L (101-111); Globulin 3.3 g/dL (2-4); Glucose 426 mg/dL (70-100); Sodium 127 mmol/L (135-145); Total Protein 6.7 g/dL (6.4-8.9)
[2021-12-09 14:51] LABS: Anion Gap 9 mmol/L (2-11)
[2021-12-09 15:50] LABS: Potassium Redraw 4.7 mmol/L (3.5-5.0)
[2021-12-09 16:51] LABS: ABS Basophils 0.1 10^3/ul (0-0.2); ABS Lymphocytes 1.6 10^3/ul (1.0-4.8); ABS Monocytes 1.8 10^3/ul (0-0.8); ABS Neutrophils 14.4 10^3/ul (1.5-7.7); Eosinophil % 0.1 %; Lymphocyte % 8.8 %; Nucleated Red Blood Cells % 0.1
[2021-12-09] MEDS ORDERED: Acetaminophen IV 1 GM/100ML 100 ML IV ONE (17:33)
[2021-12-09] MEDS ORDERED: Dextrose 50% Syringe 50 ml 25 GM/50 ML SYRINGE IV PUSH PRN (17:38)
[2021-12-09] MEDS ORDERED: Vancomycin per Pharmacy 1 EA NOTE FOLLOW UP PRN (17:41)
[2021-12-09] MEDS: Enoxaparin 40 MG/0.4 ML SYR SUBCUT SCH (18:51)
[2021-12-09] MEDS ORDERED: Insulin GLARGINE 100 un/ml 10 ml VIAL SUBCUT SCH (21:00)
[2021-12-10] MEDS: Vancomycin 1,250 MG in NS 0.9% 250 ml 250 ML IVPB SCH ×2 (02:36→14:45)
[2021-12-10 03:33] LABS: Hematocrit 44 % (42-52); Hemoglobin 14.1 g/dL (14.0-18.0); Mean Corpuscular HGB Conc 32 g/dL (31-36); Mean Corpuscular Hemoglobin 27 pg (27-31); Mean Corpuscular Volume 83 fL (80-94); Mean Platelet Volume 7.4 fL (7.4-10.4); Platelet Count 304 10^3/uL (150-450); Red Blood Count 5.26 10^6 /uL (4.18-5.48); Red Cell Distribution Width 13 % (10-15); White Blood Count 16.4 10^3/uL (3.5-10.8)
[2021-12-10 03:34] LABS: ABS Basophils 0.1 10^3/ul (0-0.2); ABS Eosinophils 0.1 10^3/ul (0-0.6); ABS Lymphocytes 1.6 10^3/ul (1.0-4.8); ABS Monocytes 1.8 10^3/ul (0-0.8); ABS Neutrophils 12.9 10^3/ul (1.5-7.7); Eosinophil % 0.8 %; Lymphocyte % 9.5 %
[2021-12-10 03:56] LABS: Anion Gap 8 mmol/L (2-11); CO2 Carbon Dioxide 24 mmol/L (22-32); Calcium 7.5 mg/dL (8.6-10.3); Chloride 97 mmol/L (101-111); Magnesium 1.9 mg/dL (1.9-2.7); Potassium 3.9 mmol/L (3.5-5.0); Sodium 129 mmol/L (135-145)
[2021-12-10 04:02] LABS: Acetaminophen < 15 mcg/mL; Blood Urea Nitrogen 20 mg/dL (6-24); Glucose 281 mg/dL (70-100); Phosphorus 2.2 mg/dL (2.5-5.0); eGFR CKD-EPI 74.2 (>60)
[2021-12-10] MEDS: Nicotine PATCH 14 MG/24 HR PATCH TRANSDERM PRN (04:51)
[2021-12-10] MEDS: Acetaminophen IV 1 GM/100ML 100 ML IV PRN ×2 (04:52→17:35)
[2021-12-10 12:26] LABS: Glucose Confirmatory 438 mg/dL (70-100)
[2021-12-10] MEDS ORDERED: Dextrose 50% Syringe 50 ml 25 GM/50 ML SYRINGE IV PUSH PRN (12:45)
[2021-12-10] MEDS: Enoxaparin 40 MG/0.4 ML SYR SUBCUT SCH (17:24)
[2021-12-10] MEDS: Insulin GLARGINE 100 un/ml 10 ml VIAL SUBCUT SCH (20:55)
[2021-12-11] MEDS: Vancomycin 1,250 MG in NS 0.9% 250 ml 250 ML IVPB SCH ×3 (02:34→16:39)
[2021-12-11 06:29] LABS: ABS Basophils 0.2 10^3/ul (0-0.2); ABS Eosinophils 0.3 10^3/ul (0-0.6); ABS Lymphocytes 1.4 10^3/ul (1.0-4.8); ABS Monocytes 1.4 10^3/ul (0-0.8); ABS Neutrophils 16.1 10^3/ul (1.5-7.7); Eosinophil % 1.7 %; Hematocrit 43 % (42-52); Hemoglobin 13.9 g/dL (14.0-18.0); Mean Corpuscular HGB Conc 32 g/dL (31-36); Mean Corpuscular Hemoglobin 27 pg (27-31); Mean Corpuscular Volume 84 fL (80-94); Mean Platelet Volume 7.8 fL (7.4-10.4); Platelet Count 361 10^3/uL (150-450); Red Blood Count 5.14 10^6 /uL (4.18-5.48); Red Cell Distribution Width 13 % (10-15); White Blood Count 19.4 10^3/uL (3.5-10.8)
[2021-12-11] MEDS: Nicotine PATCH 14 MG/24 HR PATCH TRANSDERM PRN (06:29)
[2021-12-11 06:59] LABS: Calcium 7.5 mg/dL (8.6-10.3); Magnesium 1.8 mg/dL (1.9-2.7); Potassium 4.3 mmol/L (3.5-5.0)
[2021-12-11] MEDS ORDERED: Magnesium Sulfate 2 gm BAG 2 GM/50 ML BAG IVPB ONE (07:34)
[2021-12-11] MEDS ORDERED: NS 0.9% 1000 ml BAG 1,000 ML IV ONE (09:01)
[2021-12-11 10:01] LABS: C Reactive Protein 249.53 mg/L (<8.01)
[2021-12-11] MEDS ORDERED: Vancomycin Trough Check NOTE FOLLOW UP ONE (14:00)
[2021-12-11] MEDS: Enoxaparin 40 MG/0.4 ML SYR SUBCUT SCH (18:15)
[2021-12-11] MEDS: Insulin GLARGINE 100 un/ml 10 ml VIAL SUBCUT SCH (20:43)
[2021-12-12] MEDS ORDERED: Vancomycin Trough Check NOTE FOLLOW UP ONE (05:30)
[2021-12-12] MEDS ORDERED: ceFAZolin 1 GM ADVAN 1 GM in NS 0.9% 50 ML 50 ML IVPB SCH (11:30)
[2021-12-12] MEDS: Vancomycin 1,250 MG in NS 0.9% 250 ml 250 ML IVPB SCH (12:51)
[2021-12-12 16:19] VITALS: BP 130/67
[2021-12-12] MEDS: Enoxaparin 40 MG/0.4 ML SYR SUBCUT SCH (20:58)
[2021-12-12] MEDS ORDERED: Insulin GLARGINE 100 un/ml 10 ml VIAL SUBCUT SCH ×2 (21:00)
== END 2021-12-12 18:54 | disposition left against medical advice (07) | DRG 872 ==
LOC: EDHOLD 09:47 → ED 09:47 → MED 19:46
PROVIDERS: ADMIT Internal Medicine; ATTEND Internal Medicine

== ENCOUNTER 2023-07-31 14:39 | Inpatient (IN) ==
[2023-07-31] MEDS: NS 0.9% 1000 ml BAG 1,000 ML IV ONE (16:46)
[2023-07-31] MEDS: Piperacillin/Tazobac 3.375 BAG 3.375 GM/100 ML BAG IV ONE (16:46)
[2023-07-31 16:47] LABS: Hematocrit 39.2 % (38-53); Hemoglobin 13.3 g/dL (13.2-16.3); Mean Corpuscular Hgb Conc 33.9 g/dL (31-36); Mean Corpuscular Volume 82.5 fL (80-97); Mean Platelet Volume 9.6 fL (7.5-11.2); Platelet Count 473 10^3/uL (150-450); Red Blood Count 4.75 10^6/uL (4.06-5.63); Red Cell Distribution Width 13.9 % (12-17); White Blood Count 29.8 10^3/uL (3.6-10.2)
[2023-07-31 16:59] LABS: Activated Partial Thrombo Time 24.2 seconds (26.0-38.0); INR 1.44 (0.83-1.13)
[2023-07-31 17:21] LABS: High Sensitivity Troponin 1 Hr 11 pg/mL (<20)
[2023-07-31 17:22] LABS: High Sens Troponin Baseline 9 pg/mL (<20)
[2023-07-31 17:23] LABS: ALT 26 U/L (7-52); Albumin/Globulin Ratio 0.7 (1-3); Alkaline Phosphatase 112 U/L (35-149); Anion Gap 10 mmol/L (2-16); Blood Urea Nitrogen 24 mg/dL (6-24); C Reactive Protein 367.67 mg/L (<8.01); CO2 Carbon Dioxide 25 mmol/L (22-32); Calcium 8.3 mg/dL (8.6-10.3); Chloride 90 mmol/L (101-111); Creatinine, Serum 1.02 mg/dL (0.67-1.17); Globulin 4.3 g/dL (2-4); Glucose 321 mg/dL (70-100); Sodium 125 mmol/L (135-145); Total Bilirubin 0.8 mg/dL (0.2-1.0); Total Protein 7.3 g/dL (6.4-8.9); eGFR CKD-EPI 81.1 (>60)
[2023-07-31 17:35] LABS: ABS Basophils 0.1 10^3/uL (0.0-0.1); ABS Lymphocytes 1.1 10^3/uL (1.0-4.8); ABS Monocytes 2.3 10^3/uL (0.0-1.1); ABS Neutrophils 26.3 10^3/uL (1.5-7.6); ABS Nucleated RBC 0.01 10^3/ul; Eosinophil % 0.1 %; Lymphocyte % 3.7 %
[2023-07-31] MEDS: Iodixanol (CONTRAST) 320 MG/ML 100 ML SDV IV ONE (17:39)
[2023-07-31] MEDS: Vancomycin 1,250 MG in NS 0.9% 250 ml 250 ML IVPB SCH (18:00)
[2023-07-31] MEDS ORDERED: Polyethylene Glycol 3350 17 GM PACKET PO PRN (20:26)
[2023-07-31] MEDS ORDERED: Al Hydrox/Mg Hydrox/Simet LIQ 30 ML UDC PO PRN (20:26)
[2023-07-31 20:29] LABS: Potassium Redraw 4.7 mmol/L (3.5-5.0)
[2023-07-31] MEDS ORDERED: Dextrose 50% Syringe 50 ml 25 GM/50 ML SYRINGE IV PUSH PRN (20:29)
[2023-07-31 20:57] LABS: Hepatitis C Antibody Negative (Negative)
[2023-07-31] MEDS: NS 0.9% 1000 ml BAG 1,000 ML IV SCH (21:01)
[2023-07-31] MEDS: ceFAZolin 2 GM PREMIX 2 GM/50 ML BAG IVPB SCH (21:46)
[2023-07-31] MEDS: Insulin GLARGINE 100 un/ml 10 ml VIAL SUBCUT SCH (21:48)
[2023-07-31] MEDS: Enoxaparin 40 MG/0.4 ML SYR SUBCUT SCH (21:48)
[2023-07-31] MEDS ORDERED: Vancomycin per Pharmacy 1 EA NOTE FOLLOW UP SCH (22:00)
[2023-07-31] MEDS: Vancomycin 1,000 MG in NS 0.9% 250 ml 250 ML IVPB ONE (22:35)
[2023-08-01 06:12] LABS: Hematocrit 40.2 % (38-53); Mean Corpuscular Hemoglobin 27.1 pg (27-33); Mean Corpuscular Hgb Conc 32.5 g/dL (31-36); Mean Corpuscular Volume 83.4 fL (80-97); Mean Platelet Volume 8.2 fL (7.5-11.2); Platelet Count 400 10^3/uL (150-450); Red Blood Count 4.81 10^6/uL (4.06-5.63); Red Cell Distribution Width 13.9 % (12-17); White Blood Count 24.5 10^3/uL (3.6-10.2)
[2023-08-01] MEDS: Ondansetron 4 mg VIAL 2 MG/ML 2 ml VIAL IV PRN (06:17)
[2023-08-01 06:31] LABS: Calcium 7.6 mg/dL (8.6-10.3); Creatinine, Serum 1.05 mg/dL (0.67-1.17); Potassium 4.3 mmol/L (3.5-5.0); eGFR CKD-EPI 78.3 (>60)
[2023-08-01 06:42] LABS: Vancomycin Random 14.6 mcg/mL
[2023-08-01 07:00] LABS: ABS Basophils 0.1 10^3/uL (0.0-0.1); ABS Eosinophils 0.1 10^3/uL (0.0-0.5); ABS Lymphocytes 0.9 10^3/uL (1.0-4.8); ABS Neutrophils 21.4 10^3/uL (1.5-7.6); ABS Nucleated RBC 0.02 10^3/ul; Eosinophil % 0.3 %; Lymphocyte % 3.8 %; Nucleated Red Blood Cells % 0.1 %/100WBC (0.0-0.8)
[2023-08-01 07:01] LABS: RBC Morphology Normal (Normal)
[2023-08-01] MEDS: Vancomycin Random Level NOTE FOLLOW UP ONE (07:33)
[2023-08-01] MEDS: NS 0.9% 1000 ml BAG 1,000 ML IV SCH (07:44)
[2023-08-01 08:11] LABS: Osmolality Serum 280 mOsm/kg (275-295)
[2023-08-01] MEDS ORDERED: Sulfur Hexaflouride MICROSPHR 25 MG VIAL ONE (10:11)
[2023-08-01] MEDS: Vancomycin 1000 MG in NS 0.9% 250 ML IVPB SCH (10:50)
[2023-08-01] MEDS: cefTRIAXone 2 gm/50 mL D5W 2 GM/50 ML BAG IV SCH (11:52)
[2023-08-01] MEDS: ceFAZolin 2 GM in NS PREMIX 2 GM/100 ML BAG IVPB SCH (13:58)
[2023-08-01 19:19] LABS: Urine Osmo 725 mOsm/kg (150-1150)
[2023-08-01] MEDS ORDERED: Propofol 10 MG/ML 20 ML BTL ONE (20:38)
[2023-08-01] MEDS ORDERED: Midazolam 2 mg/2 ml VIAL 1 mg/ml 2 ml VIAL (2 mg) ONE (20:38)
[2023-08-01] MEDS ORDERED: fentaNYL 100 mcg/2 ml 50 MCG/ML VIAL ONE (20:38)
[2023-08-01] MEDS ORDERED: Lidocaine 1.5% EPI 1:200,000 30 ML SDV ONE (20:40)
[2023-08-01] MEDS ORDERED: Lidocaine 2% PF 5 ML VIAL ONE (21:14)
[2023-08-02 06:58] LABS: ABS Basophils 0.1 10^3/uL (0.0-0.1); ABS Eosinophils 0.3 10^3/uL (0.0-0.5); ABS Lymphocytes 1.4 10^3/uL (1.0-4.8); ABS Monocytes 1.9 10^3/uL (0.0-1.1); ABS Neutrophils 20.9 10^3/uL (1.5-7.6); ABS Nucleated RBC 0.01 10^3/ul; Eosinophil % 1.2 %; Hematocrit 36.4 % (38-53); Hemoglobin 11.6 g/dL (13.2-16.3); Lymphocyte % 5.7 %; Mean Corpuscular Hemoglobin 27.1 pg (27-33); Mean Corpuscular Hgb Conc 31.9 g/dL (31-36); Mean Corpuscular Volume 84.9 fL (80-97); Mean Platelet Volume 8.5 fL (7.5-11.2); Platelet Count 365 10^3/uL (150-450); Red Blood Count 4.29 10^6/uL (4.06-5.63); Red Cell Distribution Width 13.5 % (12-17); White Blood Count 24.5 10^3/uL (3.6-10.2)
[2023-08-02 07:10] LABS: Calcium 7.1 mg/dL (8.6-10.3); Creatinine, Serum 1.1 mg/dL (0.67-1.17); Potassium 4.2 mmol/L (3.5-5.0)
[2023-08-02] MEDS: NS 0.9% 1000 ml BAG 1,000 ML IV SCH (09:13)
[2023-08-02] MEDS: CALCIUM GLUCONATE 1GM/50ML NS 1 GM/50 ML BAG IV SCH (11:33)
[2023-08-02 11:54] LABS: Calcium (PTH Intact) 6.8 mg/dL (8.6-10.3)
[2023-08-02] MEDS ORDERED: Naloxone 0.4 mg VIAL 0.4 mg/ml 1 ml VIAL ONE (13:16)
[2023-08-02] MEDS ORDERED: Midazolam 5 mg/5 ml VIAL 1 mg/ml 5 ml VIAL (5 mg) ONE (13:16)
[2023-08-02] MEDS ORDERED: Flumazenil 0.5 mg/5 ml 0.1 MG/ML 5 ml VIAL ONE (13:16)
[2023-08-02] MEDS ORDERED: fentaNYL 100 mcg/2 ml 50 MCG/ML VIAL ONE (13:16)
[2023-08-02] MEDS: fentaNYL 100 mcg/2 ml 50 MCG/ML VIAL IV SLOW PU ONE (14:29)
[2023-08-02] MEDS: NS 0.9% 1000 ml BAG 1,000 ML IV ONE (14:29)
[2023-08-02] MEDS: Midazolam 10 mg/10 ml VIAL 1 mg/ml 10 ml VIAL (10 mg) IV SLOW PU ONE (14:30)
[2023-08-02] MEDS: Insulin GLARGINE 100 un/ml 10 ml VIAL SUBCUT SCH (20:45)
[2023-08-03 06:50] LABS: Hematocrit 34.2 % (38-53); Hemoglobin 11.1 g/dL (13.2-16.3); Mean Corpuscular Hemoglobin 27.2 pg (27-33); Mean Corpuscular Hgb Conc 32.5 g/dL (31-36); Mean Corpuscular Volume 83.6 fL (80-97); Mean Platelet Volume 8.6 fL (7.5-11.2); Platelet Count 400 10^3/uL (150-450); Red Cell Distribution Width 14.2 % (12-17); White Blood Count 14.1 10^3/uL (3.6-10.2)
[2023-08-03 07:03] LABS: C Reactive Protein 192.83 mg/L (<8.01); Calcium 7.2 mg/dL (8.6-10.3); Creatinine, Serum 1.05 mg/dL (0.67-1.17); eGFR CKD-EPI 78.3 (>60)
[2023-08-03 07:54] LABS: ABS Basophils 0.2 10^3/uL (0.0-0.1); ABS Eosinophils 0.4 10^3/uL (0.0-0.5); ABS Lymphocytes 1.4 10^3/uL (1.0-4.8); ABS Neutrophils 11.1 10^3/uL (1.5-7.6); ABS Nucleated RBC 0.01 10^3/ul; Anisocytosis 1+; Lymphocyte % 9.6 %; Microcytosis 1+; Polychromasia 1+
[2023-08-03] MEDS ORDERED: Vancomycin Trough Check NOTE FOLLOW UP ONE (08:30)
[2023-08-03] MEDS: Insulin GLARGINE 100 un/ml 10 ml VIAL SUBCUT SCH (21:51)
[2023-08-04] MEDS: HYDROmorphone 1 MG/1 ML SYRINGE IV SLOW PU PRN (02:42)
[2023-08-04 08:05] LABS: Hematocrit 34.9 % (38-53); Hemoglobin 11.6 g/dL (13.2-16.3); Mean Corpuscular Hemoglobin 27.5 pg (27-33); Mean Corpuscular Hgb Conc 33.2 g/dL (31-36); Mean Corpuscular Volume 82.7 fL (80-97); Mean Platelet Volume 7.6 fL (7.5-11.2); Platelet Count 416 10^3/uL (150-450); Red Blood Count 4.23 10^6/uL (4.06-5.63); Red Cell Distribution Width 13.9 % (12-17); White Blood Count 10.1 10^3/uL (3.6-10.2)
[2023-08-04 08:23] LABS: Calcium 7.1 mg/dL (8.6-10.3); Creatinine, Serum 0.81 mg/dL (0.67-1.17); Magnesium 1.7 mg/dL (1.9-2.7); Potassium 3.8 mmol/L (3.5-5.0); eGFR CKD-EPI 97.2 (>60)
[2023-08-04 10:26] LABS: ABS Basophils 0.1 10^3/uL (0.0-0.1); ABS Eosinophils 0.5 10^3/uL (0.0-0.5); ABS Lymphocytes 1.7 10^3/uL (1.0-4.8); ABS Neutrophils 6.7 10^3/uL (1.5-7.6); Eosinophil % 5.3 %; Lymphocyte % 17.2 %
[2023-08-04] MEDS: Gadoteridol (CONTRAST) 279.3 MG/ML 10 ML IV ONE ×2 (13:59→15:15)
[2023-08-04] MEDS: CALCIUM GLUCONATE 1GM/50ML NS 1 GM/50 ML BAG IV ONE (20:52)
[2023-08-05 06:46] LABS: ABS Eosinophils 0.4 10^3/uL (0.0-0.5); ABS Lymphocytes 2.3 10^3/uL (1.0-4.8); ABS Monocytes 0.7 10^3/uL (0.0-1.1); ABS Neutrophils 5.4 10^3/uL (1.5-7.6); ABS Nucleated RBC 0.01 10^3/ul; Hematocrit 35.2 % (38-53); Hemoglobin 11.8 g/dL (13.2-16.3); Lymphocyte % 25.5 %; Mean Corpuscular Hemoglobin 27.7 pg (27-33); Mean Corpuscular Hgb Conc 33.4 g/dL (31-36); Mean Corpuscular Volume 82.9 fL (80-97); Mean Platelet Volume 8.3 fL (7.5-11.2); Nucleated Red Blood Cells % 0.1 %/100WBC (0.0-0.8); Platelet Count 437 10^3/uL (150-450); Red Blood Count 4.24 10^6/uL (4.06-5.63); Red Cell Distribution Width 14.1 % (12-17); White Blood Count 8.9 10^3/uL (3.6-10.2)
[2023-08-05 06:54] LABS: Calcium 7.8 mg/dL (8.6-10.3); Creatinine, Serum 0.82 mg/dL (0.67-1.17); Magnesium 1.6 mg/dL (1.9-2.7); Potassium 3.9 mmol/L (3.5-5.0); eGFR CKD-EPI 96.9 (>60)
[2023-08-05] MEDS: Magnesium Sulf 4 GM/100 ML IV 4,000 MG/100 ML BAG IVPB ONE (11:14)
[2023-08-06] MEDS: Magnesium Sulfate 2 gm BAG 2 GM/50 ML BAG IVPB ONE (09:22)
[2023-08-06] MEDS ORDERED: Lidocaine 1% w EPI 1:100,000 MDV 20 ML VIAL ONE (15:59)
[2023-08-06] MEDS ORDERED: Propofol 10 MG/ML 20 ML BTL ONE ×2 (16:24→16:59)
[2023-08-06] MEDS ORDERED: fentaNYL 100 mcg/2 ml 50 MCG/ML VIAL ONE (16:26)
[2023-08-06] MEDS ORDERED: Midazolam 2 mg/2 ml VIAL 1 mg/ml 2 ml VIAL (2 mg) ONE (16:27)
[2023-08-06] MEDS ORDERED: fentaNYL 100 mcg/2 ml 50 MCG/ML VIAL IV PRN (17:57)
[2023-08-06] MEDS ORDERED: HYDROmorphone 1 MG/1 ML SYRINGE IV PRN (17:57)
[2023-08-06] MEDS ORDERED: Ondansetron 4 mg VIAL 2 MG/ML 2 ml VIAL IV PRN (17:57)
[2023-08-06] MEDS ORDERED: Naloxone 0.4 mg VIAL 0.4 mg/ml 1 ml VIAL IV PRN (17:57)
[2023-08-07 06:33] LABS: ABS Basophils 0.1 10^3/uL (0.0-0.1); ABS Eosinophils 0.3 10^3/uL (0.0-0.5); ABS Lymphocytes 1.3 10^3/uL (1.0-4.8); ABS Monocytes 0.8 10^3/uL (0.0-1.1); ABS Nucleated RBC 0.01 10^3/ul; Eosinophil % 4.4 %; Hematocrit 33.8 % (38-53); Hemoglobin 11.1 g/dL (13.2-16.3); Lymphocyte % 20.7 %; Mean Corpuscular Hemoglobin 27.5 pg (27-33); Mean Corpuscular Volume 83.3 fL (80-97); Mean Platelet Volume 7.2 fL (7.5-11.2); Nucleated Red Blood Cells % 0.2 %/100WBC (0.0-0.8); Platelet Count 447 10^3/uL (150-450); Red Blood Count 4.05 10^6/uL (4.06-5.63); Red Cell Distribution Width 13.9 % (12-17); White Blood Count 6.5 10^3/uL (3.6-10.2)
[2023-08-07 08:06] LABS: Calcium 7.7 mg/dL (8.6-10.3); Creatinine, Serum 0.91 mg/dL (0.67-1.17); Magnesium 1.8 mg/dL (1.9-2.7); Potassium 4.3 mmol/L (3.5-5.0)
[2023-08-07] MEDS: Furosemide 20 mg/2 ml IV VIAL IV ONE (10:55)
[2023-08-07] MEDS: Magnesium Sulfate 2 gm BAG 2 GM/50 ML BAG IVPB ONE (17:59)
[2023-08-07] MEDS: Magnesium Sulfate IV 1GM/100ML 1 GM/100 ML BAG IV ONE (20:06)
[2023-08-07] MEDS: Insulin GLARGINE 100 un/ml 10 ml VIAL SUBCUT SCH (20:06)
[2023-08-08 08:00] LABS: ABS Basophils 0.1 10^3/uL (0.0-0.1); ABS Eosinophils 0.3 10^3/uL (0.0-0.5); ABS Lymphocytes 1.7 10^3/uL (1.0-4.8); ABS Neutrophils 4.3 10^3/uL (1.5-7.6); ABS Nucleated RBC 0.02 10^3/ul; Eosinophil % 4.5 %; Hematocrit 35.2 % (38-53); Hemoglobin 11.9 g/dL (13.2-16.3); Mean Corpuscular Hgb Conc 33.9 g/dL (31-36); Mean Corpuscular Volume 82.5 fL (80-97); Mean Platelet Volume 7.4 fL (7.5-11.2); Nucleated Red Blood Cells % 0.3 %/100WBC (0.0-0.8); Platelet Count 532 10^3/uL (150-450); Red Blood Count 4.26 10^6/uL (4.06-5.63); Red Cell Distribution Width 14.4 % (12-17); White Blood Count 7.3 10^3/uL (3.6-10.2)
[2023-08-08 08:24] LABS: Calcium 8.5 mg/dL (8.6-10.3); Creatinine, Serum 0.86 mg/dL (0.67-1.17); Magnesium 1.8 mg/dL (1.9-2.7); Potassium 4.2 mmol/L (3.5-5.0); eGFR CKD-EPI 95.5 (>60)
[2023-08-08] MEDS: Albuterol HFA INHALER 8 gm MDI INH PRN (11:23)
[2023-08-08] MEDS: Magnesium Sulfate 2 gm BAG 2 GM/50 ML BAG IVPB ONE (13:02)
[2023-08-09] MEDS: HYDROmorphone 0.5 MG/0.5 ML SYRINGE IV SLOW PU PRN (21:23)
[2023-08-10 06:30] LABS: ABS Eosinophils 0.3 10^3/uL (0.0-0.5); ABS Lymphocytes 1.7 10^3/uL (1.0-4.8); ABS Monocytes 0.9 10^3/uL (0.0-1.1); ABS Neutrophils 4.6 10^3/uL (1.5-7.6); ABS Nucleated RBC 0.01 10^3/ul; Eosinophil % 3.4 %; Hematocrit 36.1 % (38-53); Hemoglobin 11.9 g/dL (13.2-16.3); Mean Corpuscular Hemoglobin 27.7 pg (27-33); Mean Corpuscular Hgb Conc 33.1 g/dL (31-36); Mean Corpuscular Volume 83.7 fL (80-97); Mean Platelet Volume 6.9 fL (7.5-11.2); Nucleated Red Blood Cells % 0.1 %/100WBC (0.0-0.8); Platelet Count 477 10^3/uL (150-450); Red Blood Count 4.31 10^6/uL (4.06-5.63); Red Cell Distribution Width 14.5 % (12-17); White Blood Count 7.5 10^3/uL (3.6-10.2)
[2023-08-10 06:46] LABS: Calcium 8.6 mg/dL (8.6-10.3); Creatinine, Serum 0.96 mg/dL (0.67-1.17); Magnesium 1.4 mg/dL (1.9-2.7); Potassium 4.1 mmol/L (3.5-5.0); eGFR CKD-EPI 87.2 (>60)
[2023-08-12] MEDS: ceFAZolin 2 GM PREMIX 2 GM/50 ML BAG IV SCH (20:32)
[2023-08-13 05:48] LABS: ABS Basophils 0.1 10^3/uL (0.0-0.1); ABS Eosinophils 0.2 10^3/uL (0.0-0.5); ABS Lymphocytes 1.9 10^3/uL (1.0-4.8); ABS Monocytes 0.6 10^3/uL (0.0-1.1); ABS Neutrophils 3.7 10^3/uL (1.5-7.6); ABS Nucleated RBC 0.02 10^3/ul; Eosinophil % 3.6 %; Hematocrit 37.9 % (38-53); Hemoglobin 12.3 g/dL (13.2-16.3); Lymphocyte % 29.2 %; Mean Corpuscular Hemoglobin 27.6 pg (27-33); Mean Corpuscular Hgb Conc 32.6 g/dL (31-36); Mean Corpuscular Volume 84.8 fL (80-97); Mean Platelet Volume 6.8 fL (7.5-11.2); Nucleated Red Blood Cells % 0.2 %/100WBC (0.0-0.8); Platelet Count 367 10^3/uL (150-450); Red Blood Count 4.46 10^6/uL (4.06-5.63); Red Cell Distribution Width 14.7 % (12-17); White Blood Count 6.4 10^3/uL (3.6-10.2)
[2023-08-13 06:09] LABS: Calcium 8.3 mg/dL (8.6-10.3); Creatinine, Serum 1.27 mg/dL (0.67-1.17); Magnesium 1.7 mg/dL (1.9-2.7); Potassium 4.5 mmol/L (3.5-5.0); eGFR CKD-EPI 62.3 (>60)
[2023-08-14 11:26] LABS: Calcium 8.6 mg/dL (8.6-10.3); Creatinine, Serum 0.87 mg/dL (0.67-1.17); Potassium 4.7 mmol/L (3.5-5.0); eGFR CKD-EPI 95.2 (>60)
[2023-08-14 13:37] LABS: C Reactive Protein 21.63 mg/L (<8.01)
[2023-08-14 15:13] LABS: Glucose Confirmatory 411 mg/dL (70-100)
[2023-08-14] MEDS: Insulin GLARGINE 100 un/ml 10 ml VIAL SUBCUT SCH (20:06)
[2023-08-16 06:56] LABS: Calcium 8.3 mg/dL (8.6-10.3); Magnesium 1.7 mg/dL (1.9-2.7); Potassium 4.9 mmol/L (3.5-5.0)
[2023-08-16 07:12] LABS: ABS Basophils 0.1 10^3/uL (0.0-0.1); ABS Eosinophils 0.3 10^3/uL (0.0-0.5); ABS Monocytes 0.6 10^3/uL (0.0-1.1); ABS Neutrophils 4.8 10^3/uL (1.5-7.6); ABS Nucleated RBC 0.01 10^3/ul; Eosinophil % 3.6 %; Hematocrit 36.5 % (38-53); Hemoglobin 11.8 g/dL (13.2-16.3); Lymphocyte % 25.3 %; Mean Corpuscular Hemoglobin 27.8 pg (27-33); Mean Corpuscular Hgb Conc 32.2 g/dL (31-36); Mean Corpuscular Volume 86.1 fL (80-97); Mean Platelet Volume 6.8 fL (7.5-11.2); Nucleated Red Blood Cells % 0.1 %/100WBC (0.0-0.8); Platelet Count 333 10^3/uL (150-450); Red Blood Count 4.24 10^6/uL (4.06-5.63); Red Cell Distribution Width 14.8 % (12-17); White Blood Count 7.7 10^3/uL (3.6-10.2)
[2023-08-16] MEDS: Insulin GLARGINE 100 un/ml 10 ml VIAL SUBCUT SCH (20:46)
[2023-08-17 09:51] VITALS: BP 114/74
== END 2023-08-17 12:22 | DRG 854 ==
LOC: ED 14:39 → SUATTDRO 20:26 → EDHOLD 20:26 → MEDTELE 08-01 02:52
PROVIDERS: ADMIT Internal Medicine; ATTEND Hospitalist